=== PATIENT | female | born 1955 | race Two or more races ===

== ENCOUNTER 2022-03-15 12:48 | Emergency (ER) | payer OTHER ==
[~2022-03-15] VITALS: Ht 165.1 cm; Wt 70.3 kg
[2022-03-15 13:02] VITALS: BP 107/47
[2022-03-15] MEDS ORDERED: SODIUM CHLORIDE 0.9% 1,000 ML IV ONE (13:15)
[2022-03-15] MEDS ORDERED: MECLIZINE HCL 25 MG TAB PO ONE (13:15)
[2022-03-15 14:52] LABS: Basophils # (auto) 0.1 10 ^3/uL (0-0.2); Basophils % (auto) 1.4 % (0.0-2.0); Eosinophils # (auto) 0.2 10 ^3/uL (0-0.8); Eosinophils % (auto) 2.5 % (0.0-7.0); Hematocrit 33.6 % (36.0-46.0); Hemoglobin 11.4 g/dL (12.2-16.2); Lymphocytes # (auto) 2.8 10 ^3/uL (0.4-5.4); Lymphocytes % (auto) 34.1 % (10.0-50.0); Mean Corpuscular Hemoglobin 28.5 pg (28.0-32.0); Mean Corpuscular Hgb Conc. 33.9 g/dL (32.0-36.0); Mean Corpuscular Volume 84.1 fL (80.0-100.0); Monocytes # (auto) 0.4 10 ^3/uL (0-1.3); Monocytes % (auto) 4.4 % (0.0-12.0); Neutrophils # (auto) 4.7 10 ^3/uL (1.6-8.6); Neutrophils % (auto) 57.6 % (37.0-80.0); Nucleated Red Blood Cells % 0.1 %; Red Blood Cells 3.99 10^6/uL (4.0-5.20); White Blood Cell 8.2 10^3/uL (4.4-10.8)
[2022-03-15 15:00] LABS: Urine Bacteria NONE SEEN /hpf (None Seen); Urine Blood Negative /uL (Negative); Urine Hyaline Cast FEW /lpf (0 - 2); Urine Specific Gravity 1.018 (1.001-1.035); Urine WBC 5 /hpf (0 - 5)
[2022-03-15 15:08] LABS: Albumin 3.6 g/dL (3.4-5.0); Potassium 3.3 mmol/L (3.5-5.1)
[2022-03-15 15:11] LABS: BUN/Creatinine Ratio 22.2; Bilirubin, Total 0.5 mg/dL (0.2-1.0); Total Protein 6.7 g/dL (6.4-8.2)
[2022-03-15] MEDS ORDERED: MECL25CH38 PO (17:07)
[2022-03-15] MEDS ORDERED: NITR-87 PO (17:08)
[2022-03-15] MEDS ORDERED: POTASSIUM EFFERVESENT TAB 25 MEQ PO ONE (17:15)
== END 2022-03-15 19:47 | disposition home or self-care (01) ==
LOC: ER 12:48
DX: R42 Dizziness and giddiness (principal); E11.649 Type 2 diabetes mellitus with hypoglycemia without coma; I10 Essential (primary) hypertension
CPT/HCPCS: 36415; 70450; 80053; 81001; 82962; 84484; 85025; 93005; 99285; J8597

== ENCOUNTER 2024-02-27 19:20 | Inpatient (IN) | payer OTHER ==
[~2024-02-27] VITALS: Ht 165.1 cm; Wt 67.7 kg
[~2024-02-27 19:20] MED LIST: MECL25CH38 PO; NITR-87 PO
[2024-02-27] MEDS: SODIUM CHLORIDE 0.9% 1,000 ML IV ONE (20:03)
[2024-02-27 20:47] LABS: Basophils # (auto) 0 10 ^3/uL (0-0.2); Eosinophils # (auto) 0 10 ^3/uL (0-0.8); Hematocrit 44.3 % (36.0-46.0); Hemoglobin 14.5 g/dL (12.2-16.2); Lymphocytes # (auto) 1.2 10 ^3/uL (0.4-5.4); Lymphocytes % (auto) 5.5 % (10.0-50.0); Mean Corpuscular Hemoglobin 28.8 pg (28.0-32.0); Mean Corpuscular Hgb Conc. 32.7 g/dL (32.0-36.0); Mean Corpuscular Volume 87.8 fL (80.0-100.0); Monocytes # (auto) 1.5 10 ^3/uL (0-1.3); Neutrophils % (auto) 87.5 % (37.0-80.0); Red Blood Cells 5.04 10^6/uL (4.0-5.20); Red Cell Distribution Width 13.9 % (11.8-14.3); White Blood Cell 21.8 10^3/uL (4.4-10.8)
[2024-02-27 20:50] VITALS: PULSE 93; RESP 15; O2SAT 90
[2024-02-27 20:56] LABS: INR 1.31 (0.9-1.15); Partial Thromboplastin Time 25.4 SEC (24.5-34.5); Prothrombin Time 13.6 sec (9.3-11.8)
[2024-02-27 21:00] LABS: Alanine Aminotransferase 14 U/L (7-40); Albumin 4.4 g/dL (3.2-4.8); Alkaline Phosphatase 174 U/L (46-116); Anion Gap 11 (5-15); Aspartate Aminotransferase 38 U/L (13-40); Blood Urea Nitrogen 27 mg/dL (9-23); Calcium 10.9 mg/dL (8.7-10.4); Carbon Dioxide 24 mmol/L (20-30); Chloride 100 mmol/L (98-107); Glucose 196 mg/dL (74-106); Potassium 4.4 mmol/L (3.5-5.1); Sodium 135 mmol/L (136-145)
[2024-02-27 21:01] LABS: Bilirubin, Total 0.9 mg/dL (0.2-1.0); Total Protein 7.2 g/dL (5.7-8.2)
[2024-02-27 21:53] LABS: Salicylate < 3.0 mg/dL (2.8-20.0)
[2024-02-27 22:02] LABS: Lactic Acid w/Reflex 2.7 mmol/L (0.4-2.0)
[2024-02-27 22:46] LABS: Urine Bacteria FEW /hpf (None Seen); Urine Blood Negative /uL (Negative); Urine Clarity Turbid (Clear); Urine Color Dark-Orange (Yellow); Urine Hyaline Cast FEW /lpf (0 - 2); Urine Mucus FEW (None Seen); Urine Protein, UAD TRACE (Negative); Urine Specific Gravity 1.026 (1.001-1.035); Urine Urobilinogen 8 mg/dL (Negative); Urine WBC 2 /hpf (0 - 5); Urine pH 5.5 (5.0-9.0)
[2024-02-27] MEDS: NALOXONE HCL 1MG/ML 2ML SYRINGE IV ONE (22:46)
[2024-02-27] MEDS: PIPERACILLIN-TAZOB 3.375GM 100 ML IV ONE (22:47)
[2024-02-27] MEDS: SODIUM CHLORIDE 0.9% 1,700 ML IV ONE (22:47)
[2024-02-27 22:55] LABS: Amphetamine Screen, Urine Neg (NEGATIVE); Barbiturate Scree,Urine Neg (NEGATIVE); Benzodiazephine Screen, Urine Neg (NEGATIVE); Cocaine Screen, Urine Neg (NEGATIVE); Opiate Scree,Urine Pos (NEGATIVE)
[2024-02-27 23:23] LABS: Cannabinoid Screen, Urine Neg (NEGATIVE); Phencyclidine Screen, Urine Neg (NEGATIVE)
[2024-02-27] MEDS ORDERED: VANCOMYCIN PER PHARMACY 0 MG IV SCH (23:30)
[2024-02-27] MEDS: VANCOMYCIN 1GM/200ML 200 ML IV ONE (23:52)
[2024-02-28] VITALS (7 sets, daily range): BP systolic 155–167; BP diastolic 87–102; PULSE 104–119; RESP 17–20; TEMP 97.8–98.6; O2SAT 92–96
[2024-02-28 01:15] LABS: Lactic Acid w/Reflex 2.8 mmol/L (0.4-2.0)
[2024-02-28] MEDS: SODIUM CHLORIDE 0.9% 1,000 ML IV SCH (01:29)
[2024-02-28] MEDS ORDERED: MORPHINE SULFATE INJ 2 MG/ml SYRG IV PRN (01:45)
[2024-02-28] MEDS ORDERED: NITROGLYCERIN 0.4 MG SL TAB SL PRN (01:45)
[2024-02-28 01:54] LABS: Basophils # (auto) 0 10 ^3/uL (0-0.2); Basophils % (auto) 0.2 % (0.0-2.0); Eosinophils # (auto) 0 10 ^3/uL (0-0.8); Hematocrit 40.9 % (36.0-46.0); Lymphocytes # (auto) 1.2 10 ^3/uL (0.4-5.4); Lymphocytes % (auto) 6.7 % (10.0-50.0); Mean Corpuscular Hemoglobin 28.4 pg (28.0-32.0); Mean Corpuscular Hgb Conc. 31.8 g/dL (32.0-36.0); Mean Corpuscular Volume 89.3 fL (80.0-100.0); Monocytes # (auto) 1.3 10 ^3/uL (0-1.3); Monocytes % (auto) 6.8 % (0.0-12.0); Neutrophils % (auto) 86.3 % (37.0-80.0); Red Blood Cells 4.58 10^6/uL (4.0-5.20); Red Cell Distribution Width 13.9 % (11.8-14.3); White Blood Cell 18.5 10^3/uL (4.4-10.8)
[2024-02-28] MEDS ORDERED: VANCOMYCIN PER PHARMACY 0 MG IV SCH (02:00)
[2024-02-28 06:04] LABS: Basophils # (auto) 0 10 ^3/uL (0-0.2); Basophils % (auto) 0.1 % (0.0-2.0); Eosinophils # (auto) 0 10 ^3/uL (0-0.8); Hematocrit 43.1 % (36.0-46.0); Hemoglobin 13.9 g/dL (12.2-16.2); Lymphocytes # (auto) 1.1 10 ^3/uL (0.4-5.4); Lymphocytes % (auto) 5.9 % (10.0-50.0); Mean Corpuscular Hemoglobin 28.5 pg (28.0-32.0); Mean Corpuscular Hgb Conc. 32.2 g/dL (32.0-36.0); Mean Corpuscular Volume 88.4 fL (80.0-100.0); Monocytes # (auto) 1.4 10 ^3/uL (0-1.3); Neutrophils # (auto) 16.9 10 ^3/uL (1.6-8.6); Red Blood Cells 4.88 10^6/uL (4.0-5.20); Red Cell Distribution Width 14.1 % (11.8-14.3); White Blood Cell 19.4 10^3/uL (4.4-10.8)
[2024-02-28 06:12] LABS: Chloride 109 mmol/L (98-107); Potassium 3.5 mmol/L (3.5-5.1); Sodium 140 mmol/L (136-145)
[2024-02-28 06:13] LABS: Anion Gap 8 (5-15); Calcium 8.8 mg/dL (8.5-10.1); Carbon Dioxide 23 mmol/L (20-30)
[2024-02-28 06:18] LABS: BUN/Creatinine Ratio 23.5 (10.0-20.0); Blood Urea Nitrogen 31 mg/dL (9-23); Glucose 171 mg/dL (74-106)
[2024-02-28] MEDS: PIPERACILLIN-TAZOB 3.375GM 100 ML IV SCH (06:19)
[2024-02-28] MEDS ORDERED: LORazepam 2MG/ML-1ML VIAL IV PRN (10:30)
[2024-02-28 11:09] LABS: Folate (Folic Acid) 10.02 ng/mL (>5.38)
[2024-02-28] MEDS: HEPARIN SODIUM (PORCINE) 5000 UNITS/ML 1ML VIAL SC SCH (13:51)
[2024-02-28] MEDS: CARBIDOPA W LEVODOPA 25/100mg TABLET PO SCH (15:34)
[2024-02-28] MEDS ORDERED: FENO145T27 OR (16:07)
[2024-02-28] MEDS ORDERED: CLON0.1T PO (16:07)
[2024-02-28] MEDS ORDERED: MULT1TAB57 PO (16:07)
[2024-02-28] MEDS ORDERED: ASCO500C46 PO (16:07)
[2024-02-28] MEDS ORDERED: AMLO1TAB22 PO (16:07)
[2024-02-28] MEDS ORDERED: GABA-1250 PO (16:07)
[2024-02-28] MEDS ORDERED: HYDR50TA47 PO (16:07)
[2024-02-28] MEDS ORDERED: BACL10TA PO (16:07)
[2024-02-28] MEDS ORDERED: LINA145C OR (16:07)
[2024-02-28] MEDS ORDERED: CHOL100055 PO (16:07)
[2024-02-28] MEDS ORDERED: CARB25TA79 PO (16:07)
[2024-02-28] MEDS ORDERED: SEMA7TAB2 PO (16:07)
[2024-02-28] MEDS ORDERED: ALLO100T PO (16:07)
[2024-02-28] MEDS ORDERED: FURO1TAB33 GT (16:07)
[2024-02-28] MEDS ORDERED: LISI40TA16 PO (16:07)
[2024-02-28] MEDS ORDERED: METO200T42 PO (16:07)
[2024-02-28] MEDS ORDERED: HYDR-4491 OR (16:07)
[2024-02-28] MEDS ORDERED: MYCO500T PO (16:07)
[2024-02-28] MEDS ORDERED: BUPR-346 PO (16:07)
[2024-02-28] MEDS ORDERED: TRAZ1TAB12 PO (16:07)
[2024-02-28] MEDS ORDERED: ARIP2TAB PO (16:07)
[2024-02-28] MEDS ORDERED: ATOR20TA50 PO (16:07)
[2024-02-28] MEDS: VANCOMYCIN 1GM/200ML 200 ML IV SCH (22:33)
[2024-02-28] MEDS: MELATONIN 5 MG TAB PO ONE (23:02)
[2024-02-28] MEDS: cloNIDine HCL 0.1 MG TAB PO ONE (23:03)
[2024-02-29 05:00] VITALS: BP 157/91; PULSE 104; RESP 19; TEMP 98.7; O2SAT 93
[2024-02-29 06:08] LABS: Basophils # (auto) 0 10 ^3/uL (0-0.2); Basophils % (auto) 0.2 % (0.0-2.0); Eosinophils # (auto) 0 10 ^3/uL (0-0.8); Hematocrit 36.1 % (36.0-46.0); Hemoglobin 11.9 g/dL (12.2-16.2); Lymphocytes # (auto) 1.8 10 ^3/uL (0.4-5.4); Lymphocytes % (auto) 10.7 % (10.0-50.0); Mean Corpuscular Hemoglobin 29.1 pg (28.0-32.0); Mean Corpuscular Volume 88.1 fL (80.0-100.0); Monocytes # (auto) 0.8 10 ^3/uL (0-1.3); Monocytes % (auto) 5.1 % (0.0-12.0); Neutrophils # (auto) 13.8 10 ^3/uL (1.6-8.6); Red Cell Distribution Width 13.8 % (11.8-14.3); White Blood Cell 16.5 10^3/uL (4.4-10.8)
[2024-02-29 06:28] LABS: Albumin 3.3 g/dL (3.2-4.8); Alkaline Phosphatase 94 U/L (46-116); Anion Gap 7 (5-15); Aspartate Aminotransferase 18 U/L (13-40); BUN/Creatinine Ratio 29.5 (10.0-20.0); Bilirubin, Total 0.8 mg/dL (0.2-1.0); Blood Urea Nitrogen 28 mg/dL (9-23); Calcium 8.5 mg/dL (8.5-10.1); Carbon Dioxide 25 mmol/L (20-30); Chloride 106 mmol/L (98-107); Glucose 145 mg/dL (74-106); Potassium 3.4 mmol/L (3.5-5.1); Sodium 138 mmol/L (136-145); Total Protein 5.1 g/dL (5.7-8.2)
[2024-02-29 06:32] LABS: Alanine Aminotransferase < 9 U/L (7-40)
[2024-02-29] MEDS: hydrALAZINE HCL 20 MG/ML VL IV PRN (07:02)
[2024-02-29] MEDS: POTASSIUM CHL 20MEQ/100ML 100 ML IV ONE (07:02)
[2024-02-29 08:00] VITALS: BP 140/83; PULSE 106; PULSE 98; RESP 16; RESP 20; TEMP 98.3; O2SAT 92; O2SAT 96
[2024-02-29] MEDS: ONDANSETRON HCL 4 MG/2 ML VIAL IV PRN (09:33)
[2024-02-29 12:00] VITALS: BP 163/78; PULSE 103; RESP 16; TEMP 98.6; O2SAT 91
[2024-02-29 16:00] VITALS: BP 159/99; PULSE 117; RESP 18; TEMP 97.8; O2SAT 97
[2024-02-29] MEDS ORDERED: metroNIDAZOLE 500MG/100ML 100 ML IV SCH (16:30)
[2024-02-29] MEDS ORDERED: LATA0.008 EACHEYE (19:42)
[2024-02-29] MEDS ORDERED: TIMO0.5S32 EACHEYE (19:42)
[2024-02-29 20:00] VITALS: PULSE 116
[2024-02-29 21:00] VITALS: BP 160/88; PULSE 106; RESP 20; TEMP 98.2; O2SAT 94
[2024-02-29] MEDS: metroNIDAZOLE 500MG/100ML 100 ML IV SCH (21:13)
[2024-02-29] MEDS: MELATONIN 5 MG TAB PO ONE (23:20)
[2024-03-01] VITALS (8 sets, daily range): BP systolic 126–167; BP diastolic 69–104; PULSE 92–105; RESP 18–21; TEMP 97.8–98.3; O2SAT 92–98
[2024-03-01] MEDS: HYDROcodone-ACET 5/325MG TAB PO PRN (00:47)
[2024-03-01 07:51] LABS: Alanine Aminotransferase < 9 U/L (7-40); Albumin 3.1 g/dL (3.2-4.8); Alkaline Phosphatase 80 U/L (46-116); Anion Gap 6 (5-15); Aspartate Aminotransferase 19 U/L (13-40); Bilirubin, Total 0.9 mg/dL (0.2-1.0); Blood Urea Nitrogen 14 mg/dL (9-23); Calcium 8.2 mg/dL (8.7-10.4); Carbon Dioxide 26 mmol/L (20-30); Chloride 104 mmol/L (98-107); Glucose 130 mg/dL (74-106); Potassium 2.8 mmol/L (3.5-5.1); Sodium 136 mmol/L (136-145); Total Protein 4.8 g/dL (5.7-8.2)
[2024-03-01 07:52] LABS: Basophils # (auto) 0 10 ^3/uL (0-0.2); Basophils % (auto) 0.3 % (0.0-2.0); Eosinophils # (auto) 0 10 ^3/uL (0-0.8); Eosinophils % (auto) 0.2 % (0.0-7.0); Hematocrit 33.5 % (36.0-46.0); Hemoglobin 10.9 g/dL (12.2-16.2); Lymphocytes # (auto) 1.6 10 ^3/uL (0.4-5.4); Lymphocytes % (auto) 12.1 % (10.0-50.0); Mean Corpuscular Hemoglobin 28.5 pg (28.0-32.0); Mean Corpuscular Hgb Conc. 32.4 g/dL (32.0-36.0); Mean Corpuscular Volume 88.1 fL (80.0-100.0); Monocytes # (auto) 0.5 10 ^3/uL (0-1.3); Monocytes % (auto) 3.7 % (0.0-12.0); Neutrophils # (auto) 10.8 10 ^3/uL (1.6-8.6); Neutrophils % (auto) 83.7 % (37.0-80.0); Nucleated Red Blood Cells % 0.1 %; Red Blood Cells 3.81 10^6/uL (4.0-5.20); Red Cell Distribution Width 13.8 % (11.8-14.3); White Blood Cell 12.9 10^3/uL (4.4-10.8)
[2024-03-01] MEDS: TIMOLOL MAL 0.5% OPTH(EYE) SOL 5ML EACHEYE SCH (10:48)
[2024-03-01] MEDS: POTASSIUM CHL 20 Meq TABLET PO ONE (10:49)
[2024-03-01] MEDS ORDERED: VANCOMYCIN 1GM/200ML 200 ML IV SCH (17:00)
[2024-03-01] MEDS ORDERED: LATANOPROST 0.005 % OPTH(EYE) SOL 2.5ML EACHEYE SCH (22:00)
== END 2024-03-01 17:45 | DRG 871 ==
LOC: ER 19:20 → TELE 02-28 01:41 → OBSVTOIN 02-28 10:13 → TELE-CENTR 02-28 14:29
PROVIDERS: ADMIT Hospitalist; ATTEND Student in an Organized Health Care Education/Training Program
DX: A41.9 Sepsis, unspecified organism (principal); G93.41 Metabolic encephalopathy; N17.0 Acute kidney failure with tubular necrosis; A04.72 Enterocolitis due to Clostridium difficile, not specified as recurrent; E87.20 Acidosis, unspecified; N39.0 Urinary tract infection, site not specified; E11.22 Type 2 diabetes mellitus with diabetic chronic kidney disease; I12.9 Hypertensive chronic kidney disease with stage 1 through stage 4 chronic kidney disease, or unspecified chronic kidney disease; N18.30 Chronic kidney disease, stage 3 unspecified; E86.0 Dehydration; G20.A1 Parkinson's disease without dyskinesia, without mention of fluctuations; G25.3 Myoclonus; F17.200 Nicotine dependence, unspecified, uncomplicated; D64.9 Anemia, unspecified; Z82.0 Family history of epilepsy and other diseases of the nervous system
CPT/HCPCS: 36415; 70450; 70551; 71045; 71250; 72125; 73562; 74176; 80048; 80053; 80202; 80307; 80320; 80329; 81001; 82565; 82607; 82746; 83605; 83735; 83880; 84443; 84484; 85025; 85610; 85730; 87040; 87045; 87081; 87086; 87427; 87493; 93005; 93306; 95819; 97163; G0378; J2405; J2543; J3480; J3490

== ENCOUNTER 2024-12-11 13:01 | Emergency (ER) | payer OTHER ==
[~2024-12-11] VITALS: Ht 165.1 cm; Wt 66.0 kg
[~2024-12-11 13:01] MED LIST changes: +ALLO100T PO; +AMLO1TAB22 PO; +ARIP2TAB PO; +ASCO500C46 PO; +ATOR20TA50 PO; +BACL10TA PO; +BUPR-346 PO; +CARB25TA79 PO; +CHOL100055 PO; +CLON0.1T PO; +FENO145T27 OR; +FURO1TAB33 GT; +GABA-1250 PO; +HYDR-4491 OR; +HYDR50TA47 PO; +LATA0.008 EACHEYE; +LINA145C OR; +LISI40TA16 PO; +METO200T42 PO; +MULT1TAB57 PO; +MYCO500T PO; -NITR-87 PO; +SEMA7TAB2 PO; +TIMO0.5S32 EACHEYE; +TRAZ1TAB12 PO
--- NOTE | 2024-12-11 13:31 | ED.PDOC ---
History of Present Illness HPI Comments 69-year-old female presents with a chief complaint of constipation x onset Monday with associated abdominal pain. Patient states that she took lactulose orally and via an enema by her hospice nurse. Patient denies having a bowel movement since taking the lactulose. Patient reports taking Tylenol #3 and knows that it causes constipation. Time Seen by MD: 13:21 Primary Care Provider: MINA Suarez Notes: Nurses Notes, Medications, Allergies Allergies: Coded Allergies: NO KNOWN ALLERGIES (Unverified , 03/15/22) Home Meds Active Scripts Meclizine HCl (Meclizine) 25 Mg Chw, 25 MG PO BIDWM for 10 Days, #10 CHW Prov:KASHIF CABALLERO MD 03/15/22 Reported Medications Latanoprost (LATANOPROST) 0.005 % Sammie, 1 DROP EACHEYE 02/29/24 Timolol Maleate (Ophth) (Timolol Maleate) 0.5 % Sammie, 1 DROP EACHEYE BID 02/29/24 Atorvastatin Calcium (ATORVASTATIN CALCIUM) 20 Mg Tab, 20 MG PO DAILY, TAB 02/28/24 Gabapentin (Gabapentin) 300 Mg Cap, 300 MG PO for 30 Days, MG 02/28/24 Furosemide (Lasix) 20 Mg Tb, 20 MG GT, TAB 02/28/24 Semaglutide (Rybelsus) 7 Mg Tab, 7 MG PO, TAB 02/28/24 Allopurinol (Allopurinol) 100 Mg Tab, 100 MG PO DAILY for 30 Days, MG 02/28/24 Bupropion Hcl (Bupropion Hcl) 100 Mg Tab, 100 MG PO Q8HR for 30 Days, MG 02/28/24 Trazodone Hcl (Trazodone Hcl) 150 Mg Tab, 150 MG PO, MG 02/28/24 Aripiprazole (Abilify) 2 Mg Tab, 2 MG PO, TAB 02/28/24 Fenofibrate (FENOFIBRATE) 145 Mg Tab, 145 MG OR, TAB 02/28/24 Amlodipine Besylate (Amlodipine Besylate) 5 Mg Tab, 5 MG PO DAILY for 30 Days, MG 02/28/24 Lisinopril (Lisinopril) 40 Mg Tab, 40 MG PO DAILY for 30 Days, MG 02/28/24 Hydralazine Hcl (Hydralazine Hcl) 50 Mg Tab, 50 MG PO for 30 Days, MG 02/28/24 Metoprolol Succinate (Metoprolol Succinate Er) 200 Mg Tab, 200 MG PO, TAB 02/28/24 Clonidine Hydrochloride (Clonidine Hcl) 0.1 Mg Tab, 0.1 MG PO BIDBL for 30 Days, MG 02/28/24 Hydroxychloroquine Sulfate (PLAQUENIL) 200 Mg Tab, 200 MG OR, TAB 02/28/24 Carbidopa-Levodopa (Carbidopa/Levodopa Odt 25-100 mg) 1 Tab Tab, 1 TAB PO, TAB 02/28/24 Mycophenolate Mofetil (Cellcept) 500 Mg Tab, 2 TAB PO BID, #360 TAB 3 Refills 02/28/24 Linaclotide Base (LINZESS) 145 Mcg Cap, 145 MCG OR, CAP 02/28/24 Baclofen (Baclofen) 10 Mg Tab, 10 MG PO Q8HP PRN for BREAKTHROUGH PAIN for 30 Days, MG 02/28/24 Cholecalciferol (D3) 1,000 Unit Tab, 1000 UNIT PO, TAB 02/28/24 Ascorbic Acid (C 500) 500 Mg Chw, 500 MG PO, TAB.CHEW 02/28/24 Multiple Vitamins W/ Minerals (One Daily Multivitamin Wo) 1 Tab Tab, 1 TAB PO, TAB 02/28/24 Information Source: Patient Mode of Arrival: Ambulatory Severity: Moderate Timing: Days Duration: Since onset Prehospital treatment: None Past Medical History PAST MEDICAL HISTORY: DM, ESRD (STAGE 3), HTN Surgical History: Denies all surgeries CAMERA OPERATOR History: No Pertinent CAMERA OPERATOR History Social History Smoker: Non-Smoker Alcohol: Denies ETOH Use Drugs: Denies Drug Use Lives In: Home Constitutional: denies: chills, diaphoresis, fatigue, fever, malaise, sweats, weakness, others EENTM: denies: blurred vision, double vision, ear bleeding, ear discharge, ear drainage, ear pain, ear ringing, eye pain, eye redness, hearing loss, mouth pain, mouth swelling, nasal discharge, nose bleeding, nose congestion, nose pain, photophobia, tearing, throat pain, throat swelling, voice changes, others Respiratory: denies: cough, hemoptysis, orthopnea, SOB at rest, shortness of breath, SOB with excertion, stridor, wheezing, others Cardiovascular: denies: chest pain, dizzy spells, diaphoresis, Dyspnea on exertion, edema, irregular heart beat, left arm pain, lightheadedness, palpitations, PND, syncope, others Gastrointestinal: reports: abdominal pain, constipated; denies: abdomen distended, blood streaked bowels, diarrhea, dysphagia, difficulty swallowing, hematemesis, melena, nausea, poor appetite, poor fluid intake, rectal bleeding, rectal pain, vomiting, others Genitourinary: denies: abnormal vagina bleeding, burning, dyspareunia, dysuria, flank pain, frequency, hematuria, incontinence, pain, , vagina discharge, urgency, others Neurological: denies: dizziness, fainting, headache, left sided numbness, left sided weakness, numbness, paresthesia, pre-existing deficit, right sided numbness, right sided weakness, seizure, speech problems, tingling, tremors, weakness, others Musculoskeletal: denies: back pain, gout, joint pain, joint swelling, muscle pain, muscle stiffness, neck pain, others Integumetry: denies: bruises, change in color, change in hair/nails, dryness, laceration, lesions, lumps, rash, wounds, others Allergic/Immunocompromised: denies: Difficulty Healing, Frequent Infections, Hives, Itching, others Hematologic/Lymphatic: denies: anemia, blood clots, easy bleeding, easy bruising, swollen glands, others Endocrine: denies: excessive hunger, excessive sweating, excessive thirst, excessive urination, flushing, intolerance to cold, intolerance to heat, unexplained weight gain, unexplained weight loss, others Psychiatric: denies: anxiety, bipolar disorder, depression, hopeless, panic disorder, schizophrenia, sleepless, suicidal, others All Other Systems: Reviewed and Negative Physical Exam General Appearance: No Apparent Distress HEENT: Normal ENT Inspection, Pharynx Normal, TMs Normal Neck: Full Range of Motion, Non-Tender, Normal, Normal Inspection Respiratory: Chest Non-Tender, Lungs Clear, No Accessory Muscle Use, No R espiratory Distress, Normal Breath Sounds Cardiovascular: No Edema, No JVD, No Murmur, No Gallop, Normal Peripheral Pulses, Regular Rate/Rhythm Breast Exam: Deferred Gastrointestinal: No Organomegaly, Non Tender, No Pulsatile Mass, Normal Bowel Sounds, Soft Genitalia: Deferred Pelvic: Deferred Rectal: Deferred Extremities: No calf tenderness, Normal capillary refill, Normal inspection, Normal range of motion, Non-tender, No pedal edema Musculoskeletal : Apperance: Normal Neurologic: Alert, wool tamper II-XII nml as Tested, No Motor Deficits, Normal Affect, Normal Mood, No Sensory Deficits Cerebellar Function: Normal Reflexes: Normal Skin: Dry, Normal Color, Warm Lymphatic: No Adenopathy Was a procedure done? Was a procedure done?: No Differential Dx Considerations may include: Constipation, abdominal pain X-Ray, Labs, Meds, VS Vital Signs Date Time Temp Pulse Resp B/P (MAP) Pulse Ox O2 Delivery O2 Flow Rate FiO2 12/11/24 13:39 98.6 79 18 122/58 (79) 97 KUB Abdomen Impression: Large volume colonic stool The patient was given an enema. The patient will continue the lactulose at home by the home health nurse The patient will follow up with the primary care doctor The patient will return to the emergency department's condition worsens. Images Reviewed?: Images reviewed and evaluated by me Time of 1ST Reevaluation: 13:51 Reevaluation 1ST: Unchanged Patient Education/Counseling: Diagnosis, Treatment, Prognosis, Need For Follow Up Family Education/Counseling: Diagnosis, Treatment, Prognosis, Need For Follow Up Departure 1 Departure Time of Disposition: 15:55 Impression: Primary Impression: Constipation Qualified Codes: K59.00 - Constipation, unspecified Disposition: 01 HOME / SELF CARE / HOMELESS Condition: Fair Discharged With: Self Critical Care Note Critical Care Time?: No Stability Stability form required: No Heart Score Heart Score: Heart Score Response (Comments) Value History N/A 0 EKG N/A 0 Age N/A 0 Risk Factors N/A 0 Troponin N/A 0 Total 0 I personally scribed for RICKIE GAO MD ([email or web address]) on 12/11/24 at 13:31. Electronically submitted by Hilton Wang ([email or web address]). I personally scribed for RICKIE GAO MD ([email or web address]) on 12/11/24 at 14:20. Electronically submitted by Hilton Wang ([email or web address]). RICKIE GAO MD Dec 11, 2024 13:31
--- NOTE | 2024-12-11 13:43 | DVH ---
Exam: XY KUB ABDOMEN SINGLE VIEW Indication: pain Comparison: None Technique: 1 radiographic views of the abdomen. Findings: Large volume colonic stool. Nonobstructive bowel gas pattern noted. There is no definite evidence for pneumoperitoneum. No abnormal calcifications noted. Impression: Large volume colonic stool.
[2024-12-11 17:53] VITALS: BP 128/62; PULSE 81; RESP 20; TEMP 98.9; O2SAT 96
[2024-12-11] MEDS: FLEET ENEMA(ADULT) 135 ML PR ONE (18:07)
== END 2024-12-11 18:10 | disposition home or self-care (01) ==
LOC: ER 13:01
DX: K59.00 Constipation, unspecified (principal); I12.0 Hypertensive chronic kidney disease with stage 5 chronic kidney disease or end stage renal disease; E11.22 Type 2 diabetes mellitus with diabetic chronic kidney disease; N18.6 End stage renal disease; Z79.899 Other long term (current) drug therapy; Z79.624 Long term (current) use of inhibitors of nucleotide synthesis
CPT/HCPCS: 74018

== ENCOUNTER 2024-12-13 16:56 | Inpatient (IN) | payer OTHER ==
[~2024-12-13] VITALS: Ht 165.1 cm; Wt 67.0 kg
[2024-12-13 17:41] LABS: Basophils # (auto) 0 10 ^3/uL (0-0.2); Basophils % (auto) 0.3 % (0.0-2.0); Eosinophils # (auto) 0 10 ^3/uL (0-0.8); Eosinophils % (auto) 0.1 % (0.0-7.0); Hematocrit 37.2 % (36.0-46.0); Hemoglobin 12.2 g/dL (12.2-16.2); Lymphocytes # (auto) 1.5 10 ^3/uL (0.4-5.4); Lymphocytes % (auto) 16.1 % (10.0-50.0); Mean Corpuscular Hemoglobin 28.8 pg (28.0-32.0); Mean Corpuscular Hgb Conc. 32.9 g/dL (32.0-36.0); Mean Corpuscular Volume 87.6 fL (80.0-100.0); Monocytes # (auto) 0.7 10 ^3/uL (0-1.3); Monocytes % (auto) 7.7 % (0.0-12.0); Neutrophils # (auto) 7.2 10 ^3/uL (1.6-8.6); Neutrophils % (auto) 75.8 % (37.0-80.0); Platelet Count (auto) 243 10^3/uL (140-450); Red Blood Cells 4.24 10^6/uL (4.0-5.20); Red Cell Distribution Width 14.1 % (11.8-14.3); White Blood Cell 9.5 10^3/uL (4.4-10.8)
[2024-12-13 17:57] LABS: Alanine Aminotransferase 30 U/L (7-40); Albumin 4.6 g/dL (3.2-4.8); Alkaline Phosphatase 78 U/L (46-116); Anion Gap 9 (5-15); Aspartate Aminotransferase 35 U/L (13-40); BUN/Creatinine Ratio 12.1 (10.0-20.0); Blood Urea Nitrogen 14 mg/dL (9-23); Carbon Dioxide 25 mmol/L (20-31); Chloride 100 mmol/L (98-107); Lipase 28 U/L (12-53); Total Protein 7.1 g/dL (5.7-8.2)
[2024-12-13 17:58] LABS: Bilirubin, Total 0.7 mg/dL (0.2-1.0)
[2024-12-13 17:59] LABS: Glucose 136 mg/dL (74-106); Potassium 3.3 mmol/L (3.5-5.1); Sodium 134 mmol/L (136-145)
--- NOTE | 2024-12-13 18:13 | DVH ---
Procedure: CT CT AB PEL WO CON-NO ORAL OR IV 12/13/2024 05:28 PM Indication: abd pain, nausea constip Comparison Study: CT CHST AB PEL WO CON-NO IV/ORAL on DOS: 02/27/24 Technique: Axial images were obtained and reformatted in coronal and sagittal planes. All CT scans at this medical facility are performed using dose modulation techniques as appropriate to a performed e xam including the following: Automated exposure control was utilized; adjustment of the MA and/or KV according to patient size; and use of iterative reconstruction technique. CT Dose: CTDI volume is 5.9 mGy. Dose-length product is 321.94 mGy*cm FINDINGS: Lower Chest: Unremarkable. Hepatobiliary: Hepatic steatosis. Spleen: Unremarkable. Pancreas: Unremarkable. Adrenal Glands: Unremarkable. tract: The kidneys are normal in size bilaterally without hydronephrosis or nephrolithiasis. The u rinary bladder is unremarkable. GI tract: The stomach is grossly normal in appearance. No evidence of small bowel obstruction . Mode rate fecal retention noted in the ascending and transverse colon. Hard formed stool noted in the dist al descending colon and proximal sigmoid colon. No rectal fecal impaction. Fat stranding noted adjac ent to distal sigmoid colon . Distal sigmoid colon appears collapsed. Descending and sigmoid divertic ulosis noted. The appendix is not visualized. No inflammatory change is noted in the right lower quad rant. Lymphatics: No mesenteric, retroperitoneal or periportal lymphadenopathy. Vasculature: The abdominal aorta is normal in caliber. Diffuse calcified plaque formation is noted. Pelvic Organs: Unremarkable Bones/soft tissues: No acute abnormality. Other: None. IMPRESSION: 1. Moderate fecal retention in the ascending and transverse colon. Hard formed stool in the distal descending colon and proximal sigmoid colon. No rectal fecal impaction. Distal sigmoid colon is regla apsed , thick-walled and with adjacent fat stranding. Findings may reflect an infiltrative mural les ion or developing colitis or diverticulitis. Some of the diverticula are mildly thick-walled. Recomme nd clinical and biochemical correlation follow-up by CT scan with IV contrast or colonoscopy to ensur e regression and benignity. No evidence of perforation at this time.
[2024-12-13] MEDS: SODIUM CHLORIDE 0.9% 1,000 ML IV ONE (18:37)
[2024-12-13] MEDS: ONDANSETRON HCL 4 MG/2 ML VIAL IV ONE (18:51)
[2024-12-13] MEDS: MORPHINE SULFATE INJ 2 MG/ml SYRG IV ONE ×2 (18:56→23:11)
--- NOTE | 2024-12-13 19:04 | ECG ---
[facility], [place] Test Date: 2024-12-13 Test Time: 17:03:47 Pat Name: NABILA RIVERA Department: er Room: 0208 Gender: F Grinder Dresser: vianey : 1955 Requested By: LUANA ELAINE Order Number: [id number] Reading MD: Ramesh Cisneros Measurements Intervals Dickens Rate: 74 P: 35 NH: 143 QRS: -8 QRSD: 89 T: 19 QT: 392 QTc: 435 Interpretive Statements Sinus rhythm Inferior infarct, old Consider anterolateral infarct Electronically Signed On 12-14-2024 18:06:25 PST by Ramesh Cisneros Please click the below link to view image of tracing.
--- NOTE | 2024-12-13 19:19 | ED.PDOC ---
GI ASSESSMENT HPI Comments 69-year-old female brought in by EMS complaining of severe diffuse abdominal pain and cramping. Patient states she was seen here yesterday for constipation and was discharged with a prescription for enemas. Patient states she has had 3 enemas, including 1 administered by a home health nurse today. She still has not had a bowel movement for the past 7 days. Now she reports nausea but no vomiting. She denies any urinary symptoms or fever. Chief Complaint: Abdominal Pain Time Seen by MD: 18:20 Primary Care Provider: KASI Reviewed Notes: Nurses Notes, Medications, Allergies Allergies: Coded Allergies: NO KNOWN ALLERGIES (Unverified , 03/15/22) Home Meds Active Scripts Meclizine HCl (Meclizine) 25 Mg Chw, 25 MG PO BIDWM for 10 Days, #10 CHW Prov:KASHIF CABALLERO MD 03/15/22 Reported Medications Latanoprost (LATANOPROST) 0.005 % Sammie, 1 DROP EACHEYE 02/29/24 Timolol Maleate (Ophth) (Timolol Maleate) 0.5 % Sammie, 1 DROP EACHEYE BID 02/29/24 Atorvastatin Calcium (ATORVASTATIN CALCIUM) 20 Mg Tab, 20 MG PO DAILY, TAB 02/28/24 Gabapentin (Gabapentin) 300 Mg Cap, 300 MG PO for 30 Days, MG 02/28/24 Furosemide (Lasix) 20 Mg Tb, 20 MG GT, TAB 02/28/24 Semaglutide (Rybelsus) 7 Mg Tab, 7 MG PO, TAB 02/28/24 Allopurinol (Allopurinol) 100 Mg Tab, 100 MG PO DAILY for 30 Days, MG 02/28/24 Bupropion Hcl (Bupropion Hcl) 100 Mg Tab, 100 MG PO Q8HR for 30 Days, MG 02/28/24 Trazodone Hcl (Trazodone Hcl) 150 Mg Tab, 150 MG PO, MG 02/28/24 Aripiprazole (Abilify) 2 Mg Tab, 2 MG PO, TAB 02/28/24 Fenofibrate (FENOFIBRATE) 145 Mg Tab, 145 MG OR, TAB 02/28/24 Amlodipine Besylate (Amlodipine Besylate) 5 Mg Tab, 5 MG PO DAILY for 30 Days, MG 02/28/24 Lisinopril (Lisinopril) 40 Mg Tab, 40 MG PO DAILY for 30 Days, MG 02/28/24 Hydralazine Hcl (Hydralazine Hcl) 50 Mg Tab, 50 MG PO for 30 Days, MG 02/28/24 Metoprolol Succinate (Metoprolol Succinate Er) 200 Mg Tab, 200 MG PO, TAB 02/28/24 Clonidine Hydrochloride (Clonidine Hcl) 0.1 Mg Tab, 0.1 MG PO BIDBL for 30 Days, MG 02/28/24 Hydroxychloroquine Sulfate (PLAQUENIL) 200 Mg Tab, 200 MG OR, TAB 02/28/24 Carbidopa-Levodopa (Carbidopa/Levodopa Odt 25-100 mg) 1 Tab Tab, 1 TAB PO, TAB 02/28/24 Mycophenolate Mofetil (Cellcept) 500 Mg Tab, 2 TAB PO BID, #360 TAB 3 Refills 02/28/24 Linaclotide Base (LINZESS) 145 Mcg Cap, 145 MCG OR, CAP 02/28/24 Baclofen (Baclofen) 10 Mg Tab, 10 MG PO Q8HP PRN for BREAKTHROUGH PAIN for 30 Days, MG 02/28/24 Cholecalciferol (D3) 1,000 Unit Tab, 1000 UNIT PO, TAB 02/28/24 Ascorbic Acid (C 500) 500 Mg Chw, 500 MG PO, TAB.CHEW 02/28/24 Multiple Vitamins W/ Minerals (One Daily Multivitamin Wo) 1 Tab Tab, 1 TAB PO, TAB 02/28/24 Information Source: Patient Mode of Arrival: EMS Timing: Hours Duration: Since onset, Hours Prehospital treatment: None Quality: Aching Vomitus: None Stool: Minimal Severity: Moderate Recent: None Recent Hx of: None Pain Location: RLQ, LLQ, Suprapubic Associated sign and symptoms: Constipation Past Medical History PAST MEDICAL HISTORY: DM, ESRD, HTN Past Medical History (Other): Fibromyalgia Surgical History: Appendectomy, Cholecystectomy, Hysterectomy PIPELINER History: No Pertinent PIPELINER History Family History Family History: Reviewed,noncontributory to illness, Unknown Social History Smoker: Non-Smoker Alcohol: Denies ETOH Use Drugs: Denies Drug Use Lives In: Home All Other Systems: Reviewed and Negative (Comprehensive systems review obtained and negative except for what is stated in the HPI.) Physical Exam General Appearance: Moderate Distress, Obese HEENT: PERRL/EOMI, Other (Moist mucous membranes) Neck: Full Range of Motion, Normal Inspection Respiratory: Lungs Clear, No Accessory Muscle Use, No Respiratory Distress, Normal Breath Sounds Cardiovascular: No Edema, No JVD, Regular Rate/Rhythm Breast Exam: Deferred Gastrointestinal: Diffuse, Distended, Soft, Tenderness Genitalia: Deferred Pelvic: Deferred Rectal: Deferred Extremities: Normal inspection, Normal range of motion, No pedal edema Musculoskeletal : Apperance: Normal Neurologic: Alert (Oriented x4), Normal Affect, Normal Mood, Other (Ambulatory. No gross focal deficit.) Cerebellar Function: NOT DONE Reflexes: NOT DONE Skin: Dry, Normal Color, Warm Lymphatic: NOT DONE Was a procedure done? Was a procedure done?: No GI differential Dx Differential Diagnosis: Bowel Obstruction, Constipation, Diverticular disease, Gastritis/PUD, Gastroenteritis, Inflammatory BD, Ischemic Bowel, Pancreatitis, UTI, Dehydration, Diabetes/ DKA, Electrolyte Imbalance, Food Poisoning, Bacterial, Viral, Hypovolemia, Impaction, Renal Failure X-Ray, Labs, Meds, VS Vital Signs Date Time Temp Pulse Resp B/P (MAP) Pulse Ox O2 Delivery O2 Flow Rate FiO2 12/13/24 19:26 89 17 100/63 12/13/24 18:56 74 18 144/82 12/13/24 18:41 98.7 72 20 100/63 (75) 97 98.7 12/13/24 18:41 72 18 97 Room Air 12/13/24 17:04 98.3 64 18 114/78 (90) 98 12/13/24 17:03 74 Lab Test 12/13/24 19:18 12/13/24 17:30 Range/Units Troponin I High Sensitivity 3 L 3 L </=34 ng/L White Blood Count 9.5 4.4-10.8 10^3/uL Red Blood Count 4.24 4.0-5.20 10^6/uL Hemoglobin 12.2 12.2-16.2 g/dL Hematocrit 37.2 36.0-46.0 % Mean Corpuscular Volume 87.6 80.0-100.0 fL Mean Corpuscular Hemoglobin 28.8 28.0-32.0 pg Mean Corpuscular Hemoglobin Concent 32.9 32.0-36.0 g/dL Red Cell Distribution Width 14.1 11.8-14.3 % Platelet Count 243 140-450 10^3/uL Mean Platelet Volume 9.9 6.9-10.8 fL Neutrophils (%) (Auto) 75.8 37.0-80.0 % Lymphocytes (%) (Auto) 16.1 10.0-50.0 % Monocytes (%) (Auto) 7.7 0.0-12.0 % Eosinophils (%) (Auto) 0.1 0.0-7.0 % Basophils (%) (Auto) 0.3 0.0-2.0 % Neutrophils # (Auto) 7.2 1.6-8.6 10 ^3/uL Lymphocytes # (Auto) 1.5 0.4-5.4 10 ^3/uL Monocytes # (Auto) 0.7 0-1.3 10 ^3/uL Eosinophils # (Auto) 0 0-0.8 10 ^3/uL Basophils # (Auto) 0 0-0.2 10 ^3/uL Nucleated Red Blood Cells 0.0 % Sodium Level 134 L 136-145 mmol/L Potassium Level 3.3 L 3.5-5.1 mmol/L Chloride Level 100 98-107 mmol/L Carbon Dioxide Level 25 20-31 mmol/L Anion Gap 9 5-15 Blood Urea Nitrogen 14 9-23 mg/dL Creatinine 1.16 H 0.550-1.02 mg/dL Glomerular Filtration Rate Calc 51 >90 mL/min BUN/Creatinine Ratio 12.1 10.0-20.0 Serum Glucose 136 H 74-106 mg/dL Calcium Level 10.0 8.7-10.4 mg/dL Total Bilirubin 0.7 0.2-1.0 mg/dL Aspartate Amino Transferase (AST) 35 13-40 U/L Alanine Aminotransferase (ALT) 30 7-40 U/L Alkaline Phosphatase 78 46-116 U/L B-Type Natriuretic Peptide 141.68 0-100 pg/mL Total Protein 7.1 5.7-8.2 g/dL Albumin 4.6 3.2-4.8 g/dL Lipase 28 12-53 U/L Current Medications Medications (Trade) Dose Ordered Sig/Karolyn Route Start Time Stop Time Status Last Admin Sodium Chloride 1,000 ml @ 1,000 mls/hr Q1H ONCE IV 12/13/24 18:15 12/13/24 19:14 DC 12/13/24 18:37 Ondansetron HCl (Zofran) 4 mg ONCE ONCE IV 12/13/24 18:15 12/13/24 18:16 DC 12/13/24 18:51 Morphine Sulfate 2 mg ONCE ONCE IV 12/13/24 18:15 12/13/24 18:16 DC 12/13/24 18:56 Piperacillin Sod/ Tazobactam Sod 100 ml @ 100 mls/hr ONCE ONCE IV 12/13/24 20:30 12/13/24 21:29 DC 12/13/24 20:56 PROCEDURE(s): ABPL - CT AB PEL WO CON-NO ORAL OR IV REASON: abd pain, nausea constip ORDER NUMBER(s): [id number], ACCESSION NUMBER(s): [id number] Procedure: CT CT AB PEL WO CON-NO ORAL OR IV 12/13/2024 05:28 PM Indication: abd pain, nausea constip Comparison Study: CT CHST AB PEL WO CON-NO IV/ORAL on DOS: 02/27/24 Technique: Axial images were obtained and reformatted in coronal and sagittal planes. All CT scans at this medical facility are performed using dose modulation techniques as appropriate to a performed exam including the following: Automated exposure control was utilized; adjustment of the MA and/or KV according to patient size; and use of iterative reconstruction technique. CT Dose: CTDI volume is 5.9 mGy. Dose-length product is 321.94 mGy*cm FINDINGS: Lower Chest: Unremarkable. Hepatobiliary: Hepatic steatosis. Spleen: Unremarkable. Pancreas: Unremarkable. Adrenal Glands: Unremarkable. tract: The kidneys are normal in size bilaterally without hydronephrosis or nephrolithiasis. The urinary bladder is unremarkable. GI tract: The stomach is grossly normal in appearance. No evidence of small bowel obstruction . Moderate fecal retention noted in the ascending and transverse colon. Hard formed stool noted in the distal descending colon and proximal sigmoid colon. No rectal fecal impaction. Fat stranding noted adjacent to distal sigmoid colon . Distal sigmoid colon appears collapsed. Descending and sigmoid diverticulosis noted. The appendix is not visualized. No inflammatory change is noted in the right lower quadrant. Lymphatics: No mesenteric, retroperitoneal or periportal lymphadenopathy. Vasculature: The abdominal aorta is normal in caliber. Diffuse calcified plaque formation is noted. Pelvic Organs: Unremarkable Bones/soft tissues: No acute abnormality. Other: None. IMPRESSION: 1. Moderate fecal retention in the ascending and transverse colon. Hard formed stool in the distal descending colon and proximal sigmoid colon. No rectal fecal impaction. Distal sigmoid colon is collapsed , thick-walled and with adjacent fat stranding. Findings may reflect an infiltrative mural lesion or developing colitis or diverticulitis. Some of the diverticula are mildly thick- walled. Recommend clinical and biochemical correlation follow-up by CT scan with IV contrast or colonoscopy to ensure regression and benignity. No evidence of perforation at this time. X-Ray, Labs, Meds, VS Comment 69-year-old female with history of hypertension, diabetes, SLE and fibromyalgia brought in by EMS complaining of persistent abdominal pain no bowel movement for the past 7 days despite using enemas. Vitals unremarkable Exam remarkable for diffuse abdominal tenderness to palpation with mild-to-m oderate distention Rhythm strip independently interpreted by me: Sinus rhythm, rate 74, no ectopy. CT abdomen and pelvis IMPRESSION: 1. Moderate fecal retention in the ascending and transverse colon. Hard formed stool in the distal descending colon and proximal sigmoid colon. No rectal fecal impaction. Distal sigmoid colon is collapsed , thick-walled and with adjacent fat stranding. Findings may reflect an infiltrative mural lesion or developing colitis or diverticulitis. Some of the diverticula are mildly thick- walled. Recommend clinical and biochemical correlation follow-up by CT scan with IV contrast or colonoscopy to ensure regression and benignity. No evidence of perforation at this time. CBC unremarkable, metabolic panel remarkable for sodium 134, potassium 3.3, creatinine 1.16, lipase normal, troponin negative, BNP 141.68 UA pending Patient treated with the following in the ED: 1L 0.9 normal saline IV bolus, morphine 2 mg IV, Zofran 4 mg IV, Zosyn 4.5 g IV On re-evaluation, patient states she is still having moderate pain and cramping. Vitals were stable. Plan is to admit the patient for IV antibiotics and GI evaluation. Time of 1ST Reevaluation: 18:50 Reevaluation 1ST: Unchanged Patient Education/Counseling: Diagnosis, Treatment, Prognosis Family Education/Counseling: No Family Present Departure 1 Departure Time of Disposition: 20:30 Impression: Primary Impression: Constipation Qualified Codes: K59.00 - Constipation, unspecified Additional Impression: Colitis Disposition: ADMITTED INPATIENT Admit to: Med Surg Condition: Guarded Critical Care Note Critical Care Time?: No Stability Stability form required: No Heart Score Heart Score: Heart Score Response (Comments) Value History N/A 0 EKG N/A 0 Age N/A 0 Risk Factors N/A 0 Troponin N/A 0 Total 0 I personally scribed for LUANA HELMS MD ([email or web address]) on 12/13/24 at 19:19. Electronically submitted by Adolfo Scott ([email or web address]). ULANA HELMS MD Dec 13, 2024 19:19
[2024-12-13] MEDS: PIPERACILLIN-TAZO 4.5GM 100 ML IV ONE (20:56)
[2024-12-13] MEDS: FLEET ENEMA(ADULT) 135 ML PR ONE (23:11)
[2024-12-14] VITALS (8 sets, daily range): BP systolic 135–175; BP diastolic 70–91; PULSE 73–79; RESP 17–20; TEMP 97.9–98.6; O2SAT 97–100
[2024-12-14] MEDS ORDERED: DOCUSATE SOD 100 MG CAP PO PRN (01:00)
[2024-12-14] MEDS ORDERED: hydrALAZINE HCL 20 MG/ML VL IV PRN (01:00)
[2024-12-14] MEDS ORDERED: ONDANSETRON HCL 4 MG/2 ML VIAL IV PRN (01:00)
[2024-12-14] MEDS ORDERED: DEXTROSE (50%) 50ML SYRG IV PRN (01:00)
--- NOTE | 2024-12-14 01:37 | DVHHP2 ---
History of Present Illness Reason for Visit: Abdominal pain History of Present Illness The patient is a 69-year-old female with past medical history of chronic kidney failure, hypertension, DM, and fibromyalgia who presented to [facility] ED with complaint of abdominal pain. Patient reports symptoms progressively get worse with abdominal cramping, unable to have bowel movement for the past 1 week, had 3 enemas, including 1 administered by a home health nurse today without relief that prompted this visit. Patient was seen and evaluated in the ED, laboratory data shows WBC 9.5, platelets 243, sodium 134, potassium 3.3, BUN 14, creatinine 1.16, GFR 51, glucose 136, troponin three, li pase 28. Abdomen/pelvis CT revealing moderate fecal retention in the ascending and transverse colon, hard formed stool in the distal descending colon and proximal sigmoid colon, no rectal fecal impaction; distal sigmoid colon is collapsed, thick wall and with adjacent fat stranding; findings may reflect an infiltrative mural lesion or developing colitis or diverticulitis. Patient was started on IV antibiotic regimen Flagyl, please see medication orders section in the computer. On my assessment, patient denied chest pain, no headache, no dizziness, no shortness of breaths, no diarrhea, no nausea, no vomiting, no fever, no chills. Patient was admitted for further evaluation and medical management. Past Medical History DM, ESRD, HTN, Fibromyalgia Past Surgical History Appendectomy, Cholecystectomy, Hysterectomy Family History Reviewed, noncontributory to the management of this case. Past Social History The patient lives at home, denies smoking, alcohol or illicit drugs abuse. Review of Systems Constitutional: No: Fever, Chills, Sweats, Weakness, Malaise, Other Eyes: No: Pain, Vision change, Conjunctivae inflammation, Eyelid inflammation, Other, Redness ENT: No: Ear pain, Ear discharge, Nose pain, Nose discharge, Nose congestion, Mouth pain, Mouth swelling, Throat pain, Throat swelling, Other Respiratory: No: Cough, Dry, Shortness of breath, SOB with excertion, Wheezing, Hemoptysis, Pleuritic Pain, Sputum, Wheezing, Other Cardiovascular: No: Chest Pain, Palpitations, Orthopnea, Paroxysmal Noc. Dyspnea, Edema, Lt Headedness, Other Gastrointestinal: Abdominal Pain, Constipation; No: Nausea, Vomiting, Diarrhea, Melena, Hematochezia, Other Genitourinary: No Dysuria, No Frequency, No Incontinence, No Hematuria, No Retention, No Other Musculoskeletal: No: other, neck pain, shoulder pain, arm pain, back pain, hand pain, leg pain, foot pain Skin: No: Rash, Lesions, Jaundice, Bruising, Other Neurological: No: Weakness, Numbness, Incoordination, Change in speech, Confusion, Seizures, Other Allergies: Coded Allergies: NO KNOWN ALLERGIES (Unverified , 03/15/22) Medications Current Medications Medications Dose Ordered Sig/Karolyn Route Start Time Stop Time Status Last Admin Dose Admin Ceftriaxone Sodium 50 ml @ 100 mls/hr DAILY@09 IV 12/14/24 09:00 Amlodipine Besylate 5 mg DAILY PO 12/14/24 10:00 Hydralazine HCl 10 mg Q6HP PRN IV 12/14/24 01:00 Atorvastatin Calcium 20 mg HS PO 12/14/24 22:00 Famotidine 20 mg DAILY IV 12/14/24 10:00 Metoprolol Tartrate 50 mg BID PO 12/14/24 10:00 Diagnostic Test (Pha) 1 strip ACHS 12/14/24 07:00 Insulin Human Regular ACHS SC 12/14/24 07:00 Dextrose 50 ml UD PRN IV 12/14/24 01:00 Sodium Chloride 1,000 ml @ 60 mls/hr [id number] IV 12/14/24 01:00 Acetaminophen/ Hydrocodone Bitart 1 tab Q4HP PRN PO 12/14/24 01:00 Ondansetron HCl 4 mg Q4HP PRN IV 12/14/24 01:00 Docusate Sodium 100 mg BIDPRN PRN PO 12/14/24 01:00 Acetaminophen 650 mg Q6HP PRN PO 12/14/24 01:00 Exam Vital Signs Vital Signs Date Time Temp Pulse Resp B/P (MAP) Pulse Ox O2 Delivery O2 Flow Rate FiO2 12/14/24 00:20 Room Air* 0 21 12/13/24 23:11 89 18 142/82 12/13/24 18:41 98.7 97 98.7 General Appearance: Alert, Oriented X3, Cooperative, No acute distress HEENT: Atraumatic, PERRLA, EOMI, Mucous membr. moist/pink Respiratory: Clear to auscultation, Normal air movement Cardiovascular: Regular rate, Normal S1, Normal S2, No murmurs Abdominal: Normal bowel sounds, Soft, No hepatospenomegaly, No masses, Other (Reports tenderness) Extremities: No clubbing, No cyanosis, No edema, Normal pulses, No tenderness/swelling Skin: No rashes, No breakdown, No significant lesion Neuro: Normal gait, Normal speech, Strength at 5/5 X4 ext, Normal tone, Sensation intact, Cranial nerves 3-12 NL, Reflexes 2+ Psych/Mental Status: Mental status NL, Mood NL Labs/Xrays Labs Test 12/14/24 00:27 12/14/24 00:22 12/13/24 17:30 Range/Units POC Glucose 118 H 70-106 mg/dl Troponin I High Sensitivity < 3 L </=34 ng/L White Blood Count 9.5 4.4-10.8 10^3/uL Red Blood Count 4.24 4.0-5.20 10^6/uL Hemoglobin 12.2 12.2-16.2 g/dL Hematocrit 37.2 36.0-46.0 % Mean Corpuscular Volume 87.6 80.0-100.0 fL Mean Corpuscular Hemoglobin 28.8 28.0-32.0 pg Mean Corpuscular Hemoglobin Concent 32.9 32.0-36.0 g/dL Red Cell Distribution Width 14.1 11.8-14.3 % Platelet Count 243 140-450 10^3/uL Mean Platelet Volume 9.9 6.9-10.8 fL Neutrophils (%) (Auto) 75.8 37.0-80.0 % Lymphocytes (%) (Auto) 16.1 10.0-50.0 % Monocytes (%) (Auto) 7.7 0.0-12.0 % Eosinophils (%) (Auto) 0.1 0.0-7.0 % Basophils (%) (Auto) 0.3 0.0-2.0 % Neutrophils # (Auto) 7.2 1.6-8.6 10 ^3/uL Lymphocytes # (Auto) 1.5 0.4-5.4 10 ^3/uL Monocytes # (Auto) 0.7 0-1.3 10 ^3/uL Eosinophils # (Auto) 0 0-0.8 10 ^3/uL Basophils # (Auto) 0 0-0.2 10 ^3/uL Nucleated Red Blood Cells 0.0 % Sodium Level 134 L 136-145 mmol/L Potassium Level 3.3 L 3.5-5.1 mmol/L Chloride Level 100 98-107 mmol/L Carbon Dioxide Level 25 20-31 mmol/L Anion Gap 9 5-15 Blood Urea Nitrogen 14 9-23 mg/dL Creatinine 1.16 H 0.550-1.02 mg/dL Glomerular Filtration Rate Calc 51 >90 mL/min BUN/Creatinine Ratio 12.1 10.0-20.0 Serum Glucose 136 H 74-106 mg/dL Calcium Level 10.0 8.7-10.4 mg/dL Total Bilirubin 0.7 0.2-1.0 mg/dL Aspartate Amino Transferase (AST) 35 13-40 U/L Alanine Aminotransferase (ALT) 30 7-40 U/L Alkaline Phosphatase 78 46-116 U/L B-Type Natriuretic Peptide 141.68 0-100 pg/mL Total Protein 7.1 5.7-8.2 g/dL Albumin 4.6 3.2-4.8 g/dL Lipase 28 12-53 U/L PATIENT: NABILA RIVERA ACCT: [id number] UNIT: [id number] : 1955 LOC: ER ROOM / BED: / AGE / SEX: 69 / F ADM STATUS: REG ER SERVICE 171 ORDERING PHYSICIAN: LUANA HELMS MD PROCEDURE(s): ABPL - CT AB PEL WO CON-NO ORAL OR IV REASON: abd pain, nausea constip ORDER NUMBER(s): [id number], ACCESSION NUMBER(s): [id number] Procedure: CT CT AB PEL WO CON-NO ORAL OR IV 12/13/2024 05:28 PM Indication: abd pain, nausea constip Comparison Study: CT CHST AB PEL WO CON-NO IV/ORAL on DOS: 02/27/24 Technique: Axial images were obtained and reformatted in coronal and sagittal planes. All CT scans at this medical facility are performed using dose mo dulation techniques as appropriate to a performed exam including the following: Automated exposure control was utilized; adjustment of the MA and/or KV according to patient size; and use of iterative reconstruction technique. CT Dose: CTDI volume is 5.9 mGy. Dose-length product is 321.94 mGy*cm FINDINGS: Lower Chest: Unremarkable. Hepatobiliary: Hepatic steatosis. Spleen: Unremarkable. Pancreas: Unremarkable. Adrenal Glands: Unremarkable. tract: The kidneys are normal in size bilaterally without hydronephrosis or nephrolithiasis. The urinary bladder is unremarkable. GI tract: The stomach is grossly normal in appearance. No evidence of small bowel obstruction. Moderate fecal retention noted in the ascending and transverse colon. Hard formed stool noted in the distal descending colon and proximal sigmoid colon. No rectal fecal impaction. Fat stranding noted adjacent to distal sigmoid colon . Distal sigmoid colon appears collapsed. Descending and sigmoid diverticulosis noted. The appendix is not visualized. No inflammatory change is noted in the right lower quadrant. Lymphatics: No mesenteric, retroperitoneal or periportal lymphadenopathy. Vasculature: The abdominal aorta is normal in caliber. Diffuse calcified plaque formation is noted. Pelvic Organs: Unremarkable Bones/soft tissues: No acute abnormality. Other: None. IMPRESSION: 1. Moderate fecal retention in the ascending and transverse colon. Hard formed stool in the distal descending colon and proximal sigmoid colon. No rectal fecal impaction. Distal sigmoid colon is collapsed, thick-walled and with adjacent fat stranding. Findings may reflect an infiltrative mural lesion or developing colitis or diverticulitis. Some of the diverticula are mildly thick-walled. Recommend clinical and biochemical correlation follow-up by CT scan with IV contrast or colonoscopy to ensure regression and benignity. No evidence of perfo ration at this time. Assessment/Plan Assessment/Plan Constipation Constipation, unspecified Colitis Electrolyte imbalance Acute abdominal pain Plan 1. Admit to med surge unit 2. Breathing treatment 3. Pain control management 4. IV antibiotic management 5. Management of fluids and electrolytes 6. Consultation for GI for possible colonoscopy 7. Diagnostic test abdomen/pelvis CT 8. DVT prophylaxis-on SCDs 9. Repeat labs CBC, CMP in a.m. 10. Home medication reviewed and reconciled 11. Continue with current medical management 12. Treatment plan discussed with patient and RN. Patient verbalized understanding. Plan discussed with: Patient, Other (RN) My Orders Orders - ISABEL ESTRELLA DNP Procedure Category Date Status Time Complete Blood Count LAB 12/14/24 Logged 04:00 Comprehensive LAB 12/14/24 Logged Metabolic Panel 04:00 Ceftriaxone 1gm/50ml PHA 12/14/24 In Process D5w (Rocephin) 09:00 Amlodipine Tablet PHA 12/14/24 In Process (Norvasc Tablet) 10:00 Hydralazine Injection PHA 12/14/24 In Process (Apresoline Inject 01:00 Atorvastatin (Lipitor) PHA 12/14/24 In Process 22:00 Famotidine Injection PHA 12/14/24 In Process (Pepcid Injection) 10:00 Metoprolol Tartrate PHA 12/14/24 In Process Tablet (Lopressor Ta 10:00 Consistent DIET 12/14/24 Transmitted Carb(Ccho)Diabetes Breakfast Glucose Blood PHA 12/14/24 In Process (Accu-Chek Comfort 07:00 Insulin R (Human) PHA 12/14/24 In Process (Insulin R) 07:00 Dextrose 50% Syringe PHA 12/14/24 In Process 01:00 Allergies AUDREY 12/14/24 In Process 00:58 Code Status CODE 12/14/24 Transmitted 00:58 Sodium Chloride 0.9% PHA 12/14/24 In Process 01:00 Oxygen Per Hour RT 12/14/24 Transmitted 00:58 Hydrocodone-Acet PHA 12/14/24 In Process 5/325mg Tab ([place] 01:00 Ondansetron Hcl PHA 12/14/24 In Process (Zofran) 01:00 Docusate Sodium PHA 12/14/24 In Process Capsule (Colace 01:00 Complete Blood Count LAB 12/15/24 Verified 04:00 Comprehensive LAB 12/15/24 Verified Metabolic Panel 04:00 Condition: Serious AUDREY 12/14/24 In Process 00:58 Acetaminophen Tablet PHA 12/14/24 In Process (Tylenol Tablet) 01:00 Bedrest With Bathroom AUDREY 12/14/24 In Process Privileg 00:58 Sequential AUDREY 12/14/24 In Process Compression Device Problem List: (1) Constipation (2) Constipation, unspecified (3) Colitis (4) Electrolyte imbalance (5) Acute abdominal pain Date of Service: Dec 14, 2024 Billing Provider: ISABEL ESTRELLA DNP Common Visit Codes: [id number] INP/OBS CARE (HIGH) ISABEL ESTRELLA DNP Dec 14, 2024 01:37
[2024-12-14] MEDS ORDERED: NITROGLYCERIN 0.4 MG SL TAB SL PRN (01:45)
[2024-12-14] MEDS ORDERED: MORPHINE SULFATE INJ 2 MG/ml SYRG IV PRN (01:45)
[2024-12-14] MEDS: POTASSIUM CHL 20 Meq TABLET PO ONE (02:28)
[2024-12-14] MEDS: SODIUM CHLORIDE 0.9% 1,000 ML IV SCH (02:28)
[2024-12-14] MEDS: HYDROcodone-ACET 5/325MG TAB PO PRN (04:30)
[2024-12-14] MEDS: metroNIDAZOLE 500MG/100ML 100 ML IV SCH (06:16)
[2024-12-14] MEDS: ACCU-CHEK COMFORT CURVE STRIP VI SCH (06:16)
[2024-12-14] MEDS: InsuLIN REG 1unit/0.01ml Soln (100units/ml) SC SCH (06:47)
[2024-12-14 06:55] LABS: Basophils # (auto) 0 10 ^3/uL (0-0.2); Basophils % (auto) 0.3 % (0.0-2.0); Eosinophils # (auto) 0 10 ^3/uL (0-0.8); Eosinophils % (auto) 0.2 % (0.0-7.0); Hematocrit 31.7 % (36.0-46.0); Hemoglobin 10.7 g/dL (12.2-16.2); Lymphocytes # (auto) 2.2 10 ^3/uL (0.4-5.4); Lymphocytes % (auto) 26.7 % (10.0-50.0); Mean Corpuscular Hemoglobin 30.2 pg (28.0-32.0); Mean Corpuscular Hgb Conc. 33.9 g/dL (32.0-36.0); Mean Corpuscular Volume 89.2 fL (80.0-100.0); Monocytes # (auto) 0.6 10 ^3/uL (0-1.3); Monocytes % (auto) 7.6 % (0.0-12.0); Neutrophils # (auto) 5.5 10 ^3/uL (1.6-8.6); Neutrophils % (auto) 65.2 % (37.0-80.0); Nucleated Red Blood Cells % 0.1 %; Platelet Count (auto) 182 10^3/uL (140-450); Red Blood Cells 3.56 10^6/uL (4.0-5.20); Red Cell Distribution Width 14.1 % (11.8-14.3); White Blood Cell 8.4 10^3/uL (4.4-10.8)
[2024-12-14 07:14] LABS: Alanine Aminotransferase 38 U/L (7-40); Alkaline Phosphatase 83 U/L (46-116); Anion Gap 9 (5-15); BUN/Creatinine Ratio 12.2 (10.0-20.0); Blood Urea Nitrogen 11 mg/dL (9-23); Calcium 8.9 mg/dL (8.7-10.4); Carbon Dioxide 22 mmol/L (20-31); Chloride 106 mmol/L (98-107); Glucose 102 mg/dL (74-106); Potassium 3.5 mmol/L (3.5-5.1); Sodium 137 mmol/L (136-145); Total Protein 6.2 g/dL (5.7-8.2)
[2024-12-14 07:15] LABS: Bilirubin, Total 0.6 mg/dL (0.2-1.0)
[2024-12-14 07:28] LABS: Aspartate Aminotransferase 73 U/L (13-40)
[2024-12-14] MEDS: METOPROLOL TARTRATE 50 MG TAB PO SCH (08:31)
[2024-12-14] MEDS: FAMOTIDINE (10MG/ML) 2ML VL IV SCH (08:31)
[2024-12-14] MEDS: cefTRIAXone 1GM/50ML D5W 50 ML IV SCH (08:31)
[2024-12-14] MEDS: amLODIPine BESYLATE 5 MG TAB PO SCH (08:31)
[2024-12-14] MEDS ORDERED: LORA-1121 PO (11:29)
--- NOTE | 2024-12-14 13:26 | DVHPN2 ---
Reviewed: Care Plan, H&P, Labs, Medications, Previous Orders, Radiology Changes from previous H/P or p: No Changes Eyes: No Pain, No Vision change, No Conjunctivae inflammation, No Eyelid inflammation, No Other, No Redness ENT: No Ear pain, No Ear discharge, No Nose pain, No Nose discharge, No Nose congestion, No Mouth pain, No Mouth swelling, No Throat pain, No Throat swelling, No Other Cardiovascular: No Chest Pain, No Palpitations, No Orthopnea, No Paroxysmal Noc. Dyspnea, No Edema, No Lt Headedness, No Other Respiratory: No Cough, No Dry, No Shortness of breath, No SOB with excertion, No Wheezing, No Hemoptysis, No Pleuritic Pain, No Sputum, No Other Gastrointestinal: No Nausea, No Vomiting; Abdominal Pain; No Diarrhea; C onstipation; No Melena, No Hematochezia, No Other Genitourinary: No Dysuria, No Frequency, No Incontinence, No Hematuria, No Retention, No Other Musculoskeletal: No other, No neck pain, No shoulder pain, No arm pain, No back pain, No hand pain, No leg pain, No foot pain Skin: No Rash, No Lesions, No Jaundice, No Bruising, No Other Objective Vitals Vital Signs Date Time Temp Pulse Resp B/P (MAP) Pulse Ox O2 Delivery O2 Flow Rate FiO2 12/14/24 08:31 74 140/73 12/14/24 08:13 98.4 17 97 98.4 12/14/24 04:29 Room Air* 0 21 Intake/Output Intake and Output 12/14/24 07:00 Intake Total 1000 ml Balance 1000 ml Intake Oral 0 ml IV Total 1000 ml Medications Current Medications Medications Dose Ordered Sig/Karolyn Route Start Time Stop Time Status Last Admin Dose Admin Ceftriaxone Sodium 50 ml @ 100 mls/hr DAILY@09 IV 12/14/24 09:00 12/14/24 08:31 100 MLS/HR Amlodipine Besylate 5 mg DAILY PO 12/14/24 10:00 12/14/24 08:31 5 MG Hydralazine HCl 10 mg Q6HP PRN IV 12/14/24 01:00 Atorvastatin Calcium 20 mg HS PO 12/14/24 22:00 Famotidine 20 mg DAILY IV 12/14/24 10:00 12/14/24 08:31 20 MG Metoprolol Tartrate 50 mg BID PO 12/14/24 10:00 12/14/24 08:31 50 MG Diagnostic Test (Pha) 1 strip ACHS 12/14/24 07:00 12/14/24 11:37 1 STRIP Insulin Human Regular ACHS SC 12/14/24 07:00 Dextrose 50 ml UD PRN IV 12/14/24 01:00 Sodium Chloride 1,000 ml @ 60 mls/hr [id number] IV 12/14/24 01:00 12/14/24 02:28 60 MLS/HR Acetaminophen/ Hydrocodone Bitart 1 tab Q4HP PRN PO 12/14/24 01:00 12/14/24 04:30 1 TAB Ondansetron HCl 4 mg Q4HP PRN IV 12/14/24 01:00 Docusate Sodium 100 mg BIDPRN PRN PO 12/14/24 01:00 Acetaminophen 650 mg Q6HP PRN PO 12/14/24 01:00 Nitroglycerin 0.4 mg Q5MINP PRN SL 12/14/24 01:45 Morphine Sulfate 2 mg Q30M PRN IV 12/14/24 01:45 Metronidazole 100 ml @ 100 mls/hr Q8HR IV 12/14/24 06:00 12/14/24 06:16 100 MLS/HR Laboratory Results Laboratory Tests 12/14/24 06:02 Chemistry Test 12/13/24 17:30 12/14/24 06:02 Albumin 4.6 g/dL (3.2-4.8) 4.0 g/dL (3.2-4.8) Calcium Level 10.0 mg/dL (8.7-10.4) 8.9 mg/dL (8.7-10.4) Total Protein 7.1 g/dL (5.7-8.2) 6.2 g/dL (5.7-8.2) Lipid panel Test 12/13/24 17:30 Lipase 28 U/L (12-53) Cardiac Markers Test 12/13/24 17:30 B-Type Natriuretic Peptide 141.68 pg/mL (0-100) LFT Test 12/13/24 17:30 12/14/24 06:02 Alanine Aminotransferase (ALT) 30 U/L (7-40) 38 U/L (7-40) Alkaline Phosphatase 78 U/L (46-116) 83 U/L (46-116) Aspartate Amino Transferase (AST) 35 U/L (13-40) 73 U/L (13-40) H Total Bilirubin 0.7 mg/dL (0.2-1.0) 0.6 mg/dL (0.2-1.0) Labs and/or images reviewed: Labs reviewed by me, Image(s) reviewed by me Assessment/Plan Assessment/Plan Constipation: Consult for GI Dr. Zafar Colitis Electrolyte imbalance Acute abdominal pain Diabetes Hypertension Fibromyalgia Lupus Anxiety: Ativan Per patient she was on hospice for CHF and she does not want to be on hospice anymore Lives alone Time spent 65 minutes Patient is full code Advanced care planning time 20 mts Plan discussed with: Patient Date of Service: Dec 14, 2024 Billing Provider: HAILEE URBANO MD Common Visit Codes: [id number] CARE 30-74 MIN HAILEE URBANO MD Dec 14, 2024 13:26
[2024-12-14] MEDS: LORazepam 0.5 MG TAB PO SCH (13:58)
--- NOTE | 2024-12-14 15:43 | DVHINCON2 ---
Date of service: Dec 14, 2024 Referring Physician Sally Reddy Reason for Consultation Constipation History of Present Illness The patient is a 69-year-old female with hypertension, end-stage renal disease, fibromyalgia, hyperlipidemia, who was admitted with abdominal pain in seven days without having a bowel movement. [facility] and she sees the nurse practitioner. Patient states that she had a colonoscopy several months ago which did not show any significant findings. Patient denies any bleeding. She states that she is beginning to have bowel movements. Patient states that she was taking lactulose at home as well as enemas and suppositories with little relief. Patient also states that she does not take significant pain medication although was taking pain medication recently due to the cramping abdominal pain that she has been having. Patient complains of abdominal distention and bloating but states that since admission her symptoms have improved as she is now going to the bathroom. Past Medical History As above Past Surgical History Cholecystectomy Hysterectomy Tubal ligation Family History: Cardiac disorder G8 FATHER FH: lymphoma G8 MOTHER Family History No gastrointestinal diseases or malignancies Social History Lives at home No tobacco alcohol or recreational drug use Allergies: Coded Allergies: NO KNOWN ALLERGIES (Unverified , 03/15/22) Home Meds Active Scripts Meclizine HCl (Meclizine) 25 Mg Chw, 25 MG PO BIDWM for 10 Days, #10 CHW Prov:KASHIF CABALLERO MD 03/15/22 Reported Medications Lorazepam (ATIVAN TABLET) 0.5 Mg Tb, 1 TAB PO BID PRN for ANXIETY, #60 TAB 12/14/24 Latanoprost (LATANOPROST) 0.005 % Sammie, 1 DROP EACHEYE 02/29/24 Timolol Maleate (Ophth) (Timolol Maleate) 0.5 % Sammie, 1 DROP EACHEYE BID 02/29/24 Atorvastatin Calcium (ATORVASTATIN CALCIUM) 20 Mg Tab, 20 MG PO DAILY, TAB 02/28/24 Gabapentin (Gabapentin) 300 Mg Cap, 300 MG PO for 30 Days, MG 02/28/24 Furosemide (Lasix) 20 Mg Tb, 20 MG GT, TAB 02/28/24 Semaglutide (Rybelsus) 7 Mg Tab, 7 MG PO, TAB 02/28/24 Allopurinol (Allopurinol) 100 Mg Tab, 100 MG PO DAILY for 30 Days, MG 02/28/24 Bupropion Hcl (Bupropion Hcl) 100 Mg Tab, 100 MG PO Q8HR for 30 Days, MG 02/28/24 Trazodone Hcl (Trazodone Hcl) 150 Mg Tab, 150 MG PO, MG 02/28/24 Aripiprazole (Abilify) 2 Mg Tab, 2 MG PO, TAB 02/28/24 Fenofibrate (FENOFIBRATE) 145 Mg Tab, 145 MG OR, TAB 02/28/24 Amlodipine Besylate (Amlodipine Besylate) 5 Mg Tab, 5 MG PO DAILY for 30 Days, MG 02/28/24 Lisinopril (Lisinopril) 40 Mg Tab, 40 MG PO DAILY for 30 Days, MG 02/28/24 Hydralazine Hcl (Hydralazine Hcl) 50 Mg Tab, 50 MG PO for 30 Days, MG 02/28/24 Metoprolol Succinate (Metoprolol Succinate Er) 200 Mg Tab, 200 MG PO, TAB 02/28/24 Clonidine Hydrochloride (Clonidine Hcl) 0.1 Mg Tab, 0.1 MG PO BIDBL for 30 Days, MG 02/28/24 Hydroxychloroquine Sulfate (PLAQUENIL) 200 Mg Tab, 200 MG OR, TAB 02/28/24 Carbidopa-Levodopa (Carbidopa/Levodopa Odt 25-100 mg) 1 Tab Tab, 1 TAB PO, TAB 02/28/24 Mycophenolate Mofetil (Cellcept) 500 Mg Tab, 2 TAB PO BID, #360 TAB 3 Refills 02/28/24 Linaclotide Base (LINZESS) 145 Mcg Cap, 145 MCG OR, CAP 02/28/24 Baclofen (Baclofen) 10 Mg Tab, 10 MG PO Q8HP PRN for BREAKTHROUGH PAIN for 30 Days, MG 02/28/24 Cholecalciferol (D3) 1,000 Unit Tab, 1000 UNIT PO, TAB 02/28/24 Ascorbic Acid (C 500) 500 Mg Chw, 500 MG PO, TAB.CHEW 02/28/24 Multiple Vitamins W/ Minerals (One Daily Multivitamin Wo) 1 Tab Tab, 1 TAB PO, TAB 02/28/24 Current Medications Current Medications Medications (Trade) Dose Ordered Sig/Karolyn Route PRN Reason Start Time Stop Time Status Last Admin Ceftriaxone Sodium 50 ml @ 100 mls/hr DAILY@09 IV 12/14/24 09:00 12/14/24 08:31 Amlodipine Besylate (Norvasc Tablet) 5 mg DAILY PO 12/14/24 10:00 12/14/24 08:31 Hydralazine HCl (Apresoline Injection) 10 mg Q6HP PRN IV SBP>150 12/14/24 01:00 Atorvastatin Calcium (Lipitor) 20 mg HS PO 12/14/24 22:00 Famotidine (Pepcid Injection) 20 mg DAILY IV 12/14/24 10:00 12/14/24 08:31 Metoprolol Tartrate (Lopressor Tablet) 50 mg BID PO 12/14/24 10:00 12/14/24 08:31 Diagnostic Test (Pha) (Accu-Chek Comfort Curve T) 1 strip ACHS 12/14/24 07:00 12/14/24 11:37 Insulin Human Regular (InsuLIN R) ACHS SC 12/14/24 07:00 Dextrose 50 ml UD PRN IV Blood Sugar LESS THAN 60 12/14/24 01:00 Sodium Chloride 1,000 ml @ 60 mls/hr [id number] IV 12/14/24 01:00 12/14/24 02:28 Acetaminophen/ Hydrocodone Bitart (Burdick 5/325MG Tab) 1 tab Q4HP PRN PO MODERATE PAIN (4-6 PAIN SCALE) 12/14/24 01:00 12/14/24 04:30 Ondansetron HCl (Zofran) 4 mg Q4HP PRN IV NAUSEA / VOMITING 12/14/24 01:00 Docusate Sodium (Colace Capsule) 100 mg BIDPRN PRN PO FOR CONSTIPATION 12/14/24 01:00 Acetaminophen (Tylenol Tablet) 650 mg Q6HP PRN PO PAIN SCALE 1-3 OR TEMP>100.4 12/14/24 01:00 Nitroglycerin (Ntrostat Sublingual) 0.4 mg Q5MINP PRN SL FOR CHEST PAIN 12/14/24 01:45 Morphine Sulfate 2 mg Q30M PRN IV FOR CHEST PAIN 12/14/24 01:45 Metronidazole 100 ml @ 100 mls/hr Q8HR IV 12/14/24 06:00 12/14/24 13:16 Acetaminophen/ Codeine Phosphate (Tylenol W/Cod #3 Tablet) 1 tab Q6HR PO 12/14/24 18:00 Lorazepam (Ativan Tablet) 1 mg TID PO 12/14/24 14:00 Review of Systems Constitutional: No fevers or chills Head: No headaches or dizziness no vision changes Cardiac: No chest pain or palpitations PULM: No cough wheeze or shortness of breath Rheumatology: No arthralgias or new myalgias, she does have fibromyalgia Endocrine: Diabetes Heme: History of anemia no malignancy Skin: No rashes or bruises GI: See HPI Psych: No psychosis depression or anxiety Vital Signs Vital Signs Date Time Temp Pulse Resp B/P (MAP) Pulse Ox O2 Delivery O2 Flow Rate FiO2 12/14/24 13:00 98.0 73 20 149/78 (101) 98 98.0 12/14/24 07:40 Room Air* 0 21 Physical Exam General: Alert and oriented x4 no distress HEENT: Normocephalic atraumatic EOMI, PERRLA, O/P clear Heart: Regular rate and rhythm Abdomen: Soft, mildly tender and mildly distended, no masses, normoactive bowel sounds Extremity: No clubbing cyanosis or edema Labs/Diagnostic Data Labs Test 12/14/24 11:36 12/14/24 06:02 12/13/24 17:30 Range/Units POC Glucose 118 H 70-106 mg/dl White Blood Count 8.4 4.4-10.8 10^3/uL Red Blood Count 3.56 L 4.0-5.20 10^6/uL Hemoglobin 10.7 L 12.2-16.2 g/dL Hematocrit 31.7 #L 36.0-46.0 % Mean Corpuscular Volume 89.2 80.0-100.0 fL Mean Corpuscular Hemoglobin 30.2 28.0-32.0 pg Mean Corpuscular Hemoglobin Concent 33.9 32.0-36.0 g/dL Red Cell Distribution Width 14.1 11.8-14.3 % Platelet Count 182 140-450 10^3/uL Mean Platelet Volume 10.2 6.9-10.8 fL Neutrophils (%) (Auto) 65.2 37.0-80.0 % Lymphocytes (%) (Auto) 26.7 10.0-50.0 % Monocytes (%) (Auto) 7.6 0.0-12.0 % Eosinophils (%) (Auto) 0.2 0.0-7.0 % Basophils (%) (Auto) 0.3 0.0-2.0 % Neutrophils # (Auto) 5.5 1.6-8.6 10 ^3/uL Lymphocytes # (Auto) 2.2 0.4-5.4 10 ^3/uL Monocytes # (Auto) 0.6 0-1.3 10 ^3/uL Eosinophils # (Auto) 0 0-0.8 10 ^3/uL Basophils # (Auto) 0 0-0.2 10 ^3/uL Nucleated Red Blood Cells 0.1 % Sodium Level 137 136-145 mmol/L Potassium Level 3.5 3.5-5.1 mmol/L Chloride Level 106 98-107 mmol/L Carbon Dioxide Level 22 20-31 mmol/L Anion Gap 9 5-15 Blood Urea Nitrogen 11 9-23 mg/dL Creatinine 0.90 0.550-1.02 mg/dL Glomerular Filtration Rate Calc 69 >90 mL/min BUN/Creatinine Ratio 12.2 10.0-20.0 Serum Glucose 102 74-106 mg/dL Calcium Level 8.9 8.7-10.4 mg/dL Total Bilirubin 0.6 0.2-1.0 mg/dL Aspartate Amino Transferase (AST) 73 H 13-40 U/L Alanine Aminotransferase (ALT) 38 7-40 U/L Alkaline Phosphatase 83 46-116 U/L Troponin I High Sensitivity 3 L </=34 ng/L Total Protein 6.2 5.7-8.2 g/dL Albumin 4.0 3.2-4.8 g/dL B-Type Natriuretic Peptide 141.68 0-100 pg/mL Lipase 28 12-53 U/L IMPRESSION: 1. Moderate fecal retention in the ascending and transverse colon. Hard formed stool in the distal descending colon and proximal sigmoid colon. No rectal f ecal impaction. Distal sigmoid colon is collapsed , thick-walled and with adjacent fat stranding. Findings may reflect an infiltrative mural lesion or developing colitis or diverticulitis. Some of the diverticula are mildly thick- walled. Recommend clinical and biochemical correlation follow-up by CT scan with IV contrast or colonoscopy to ensure regression and benignity. No evidence of perforation at this time. Assessment 1. Abdominal pain 2. Constipation 3. Abnormal CT scan 4. Fecal impaction 5. Chronic kidney disease, end-stage renal disease Differential diagnosis includes constipation versus diverticulosis with possible early diverticulitis. Patient states that she had a colonoscopy several months ago with a gastro group. She states it was normal given the findings on CT scan not sure if the patient had diverticulosis in the past or other findings. Regardless, patient's symptoms are resolving as she is having bowel movements. Problems(with codes): (1) Constipation (2) Acute metabolic encephalopathy (3) Vertigo (4) Hypoglycemia (5) Acute abdominal pain Plan/Recommendation 1. Follow electrolytes and replace 2. Continue with laxatives, stool softeners 3. If the patient's symptoms worsen consider antibiotics for diverticular disease and/or repeat CT scan 4. Follow up with Gastro group if the patient is discharged 5. Caution with pain medication as this may exacerbate constipation 6. Diet as tolerated Plan discussed with: Patient CASSIDY RIVERA MD Dec 14, 2024 15:43
--- NOTE | 2024-12-14 18:29 | DVHINCON2 ---
Date of Service if different f: Dec 14, 2024 Consultation ([facility]) Consulting Physician: MAITE ENGLISH MD Progress: Somewhat better Labs Laboratory Tests Test 12/13/24 17:30 12/14/24 06:02 12/14/24 11:36 B-Type Natriuretic Peptide 141.68 pg/mL (0-100) Lipase 28 U/L (12-53) White Blood Count 8.4 10^3/uL (4.4-10.8) Red Blood Count 3.56 10^6/uL (4.0-5.20) Hemoglobin 10.7 g/dL (12.2-16.2) Hematocrit 31.7 % (36.0-46.0) Mean Corpuscular Volume 89.2 fL (80.0-100.0) Mean Corpuscular Hemoglobin 30.2 pg (28.0-32.0) Mean Corpuscular Hemoglobin Concent 33.9 g/dL (32.0-36.0) Red Cell Distribution Width 14.1 % (11.8-14.3) Platelet Count 182 10^3/uL (140-450) Mean Platelet Volume 10.2 fL (6.9-10.8) Neutrophils (%) (Auto) 65.2 % (37.0-80.0) Lymphocytes (%) (Auto) 26.7 % (10.0-50.0) Monocytes (%) (Auto) 7.6 % (0.0-12.0) Eosinophils (%) (Auto) 0.2 % (0.0-7.0) Basophils (%) (Auto) 0.3 % (0.0-2.0) Neutrophils # (Auto) 5.5 10 ^3/uL (1.6-8.6) Lymphocytes # (Auto) 2.2 10 ^3/uL (0.4-5.4) Monocytes # (Auto) 0.6 10 ^3/uL (0-1.3) Eosinophils # (Auto) 0 10 ^3/uL (0-0.8) Basophils # (Auto) 0 10 ^3/uL (0-0.2) Nucleated Red Blood Cells 0.1 % Sodium Level 137 mmol/L (136-145) Potassium Level 3.5 mmol/L (3.5-5.1) Chloride Level 106 mmol/L (98-107) Carbon Dioxide Level 22 mmol/L (20-31) Anion Gap 9 (5-15) Blood Urea Nitrogen 11 mg/dL (9-23) Creatinine 0.90 mg/dL (0.550-1.02) Glomerular Filtration Rate Calc 69 mL/min (>90) BUN/Creatinine Ratio 12.2 (10.0-20.0) Serum Glucose 102 mg/dL (74-106) Calcium Level 8.9 mg/dL (8.7-10.4) Total Bilirubin 0.6 mg/dL (0.2-1.0) Aspartate Amino Transf (AST/SGOT) 73 U/L (13-40) Alanine Aminotransferase (ALT/SGPT) 38 U/L (7-40) Alkaline Phosphatase 83 U/L (46-116) Troponin I High Sensitivity 3 ng/L (</=34) Total Protein 6.2 g/dL (5.7-8.2) Albumin 4.0 g/dL (3.2-4.8) Bedside Glucose 118 mg/dl (70-106) Appetite: Fair Side effects of medications: No Appearance: Stated age Psychomotor activity: WNL Behavioral: Cooperative Eye contact: Appropriate Speech: WNL Affect: Appropriate Mood: Anxious Thought processes: Linear/Goal-directed Thought content: WNL Suicidal ideations: Absent Homicidal ideations: Absent Orientation: Person, Place, Time, Situation Memory intact: Recent Intellect: Average Abstractability: WNL Concentration: Adequate Attention: Adequate Judgement: WNL Insight: Good Vitals Vital Signs Date Time Temp Pulse Resp B/P (MAP) Pulse Ox O2 Delivery O2 Flow Rate FiO2 12/14/24 13:00 98.0 73 20 149/78 (101) 98 98.0 12/14/24 07:40 Room Air* 0 21 Current medications Current Medications Medications Dose Ordered Sig/Karolyn Route Start Time Stop Time Status Last Admin Dose Admin Ceftriaxone Sodium 50 ml @ 100 mls/hr DAILY@09 IV 12/14/24 09:00 12/14/24 08:31 100 MLS/HR Amlodipine Besylate 5 mg DAILY PO 12/14/24 10:00 12/14/24 08:31 5 MG Hydralazine HCl 10 mg Q6HP PRN IV 12/14/24 01:00 Atorvastatin Calcium 20 mg HS PO 12/14/24 22:00 Famotidine 20 mg DAILY IV 12/14/24 10:00 12/14/24 08:31 20 MG Metoprolol Tartrate 50 mg BID PO 12/14/24 10:00 12/14/24 08:31 50 MG Diagnostic Test (Pha) 1 strip ACHS 12/14/24 07:00 12/14/24 11:37 1 STRIP Insulin Human Regular ACHS SC 12/14/24 07:00 Dextrose 50 ml UD PRN IV 12/14/24 01:00 Sodium Chloride 1,000 ml @ 60 mls/hr [id number] IV 12/14/24 01:00 12/14/24 02:28 60 MLS/HR Acetaminophen/ Hydrocodone Bitart 1 tab Q4HP PRN PO 12/14/24 01:00 12/14/24 04:30 1 TAB Ondansetron HCl 4 mg Q4HP PRN IV 12/14/24 01:00 Docusate Sodium 100 mg BIDPRN PRN PO 12/14/24 01:00 Acetaminophen 650 mg Q6HP PRN PO 12/14/24 01:00 Nitroglycerin 0.4 mg Q5MINP PRN SL 12/14/24 01:45 Morphine Sulfate 2 mg Q30M PRN IV 12/14/24 01:45 Metronidazole 100 ml @ 100 mls/hr Q8HR IV 12/14/24 06:00 12/14/24 13:16 100 MLS/HR Acetaminophen/ Codeine Phosphate 1 tab Q6HR PO 12/14/24 18:00 Lorazepam 1 mg TID PO 12/14/24 14:00 Treatment plan discussed: With staff Medication adjusted: No Labs ordered: No Psychotherapy provided: No Type: Voluntary Diagnosis: Adjustment disorder with anxious mood. Plan : The pt is a little upset that her home meds have not been restarted while she has been in the hospital. She is afraid that she will get sick again and wants the meds to be restarted by her doctor. She is unhappy that her doctor is not listening to her concerns related to these meds. She denies any feelings of anxiety for any other reasons, she presents as logical, forthright, goal directed, denies any SI. HI and AVH. It is recommended that her home meds be restarted if/when appropriate per primary team. History of Present Illness Reason for Consult : Anxiety. HPI : Pt was admitted to the hospital for constipation that has recently resolved and the pt appears to be near baseline with improved bowel movements and improving oral intake allowances. Dr. Richardson consulted to assess for and recommend meds/strategies for anxiety. Pt says that she is not anxious, but rather she is upset b/c the doctor wont start the meds that she needs to be taking routinely. She needs to take eye drops for glaucoma and IOP - She takes timolol. For diabetes she takes Rybelsus that she takes every night. She has been taking Trazodone 150 mg for sleep for over 7 years and is stable on it. Pt has lupus as well takes mycophenolate 500 mg BID, plaquenal 200 mg daily. Pt takes HTN meds which include hydralazine 50 mg BID, lisinopril 40 mg daily. She is afraid that if she is not back on these meds that she is stable on she will get sick and deteriorate. Pt just wants to be back on her home meds. Pt denies feeling anxious, depressed, denies any SI, HI or AVH. Denies any hx of psychosis. Past Psychiatric History : Pt had an OP psychiatrist 7 yrs ago, now just sees and OP therapist regarding changes in her life, giving up independence and moving in with children, selling her home. Past Medical History : As above. Stage 3 ckd, fibromyalgia, HTN, lupus and glaucoma. Social History : Lives alone currently, selling her house this weekend so she can move in with her grand daughter. Next week. Assessment/Diagnosis/Plan Reviewed: Care Plan MAITE ENGLISH MD Dec 14, 2024 18:29
[2024-12-14] MEDS: ACETAMINOPHEN/CODEINE#3 (300/30mg) TAB PO SCH (18:47)
[2024-12-14] MEDS ORDERED: ONDA-180 (19:22)
[2024-12-14] MEDS ORDERED: LIDO1PAD55 (19:22)
[2024-12-14] MEDS ORDERED: POTA1TAB (19:23)
[2024-12-14] MEDS: ATORVASTATIN 20 MG TAB PO SCH (22:35)
[2024-12-15] VITALS (7 sets, daily range): BP systolic 102–160; BP diastolic 60–86; PULSE 68–79; RESP 14–20; TEMP 97.8–99.5; O2SAT 94–97
[2024-12-15 06:12] LABS: Basophils # (auto) 0 10 ^3/uL (0-0.2); Basophils % (auto) 0.6 % (0.0-2.0); Eosinophils # (auto) 0.1 10 ^3/uL (0-0.8); Hematocrit 32.5 % (36.0-46.0); Hemoglobin 11.1 g/dL (12.2-16.2); Lymphocytes # (auto) 2.7 10 ^3/uL (0.4-5.4); Mean Corpuscular Hemoglobin 29.8 pg (28.0-32.0); Mean Corpuscular Hgb Conc. 34.1 g/dL (32.0-36.0); Mean Corpuscular Volume 87.5 fL (80.0-100.0); Monocytes # (auto) 0.5 10 ^3/uL (0-1.3); Neutrophils # (auto) 2.5 10 ^3/uL (1.6-8.6); Neutrophils % (auto) 42.4 % (37.0-80.0); Nucleated Red Blood Cells % 0.2 %; Platelet Count (auto) 213 10^3/uL (140-450); Red Blood Cells 3.71 10^6/uL (4.0-5.20); Red Cell Distribution Width 13.7 % (11.8-14.3); White Blood Cell 5.8 10^3/uL (4.4-10.8)
[2024-12-15 06:24] LABS: Alanine Aminotransferase 25 U/L (7-40); Alkaline Phosphatase 68 U/L (46-116); Anion Gap 10 (5-15); Aspartate Aminotransferase 27 U/L (13-40); BUN/Creatinine Ratio 14.6 (10.0-20.0); Blood Urea Nitrogen 15 mg/dL (9-23); Calcium 9.6 mg/dL (8.7-10.4); Carbon Dioxide 26 mmol/L (20-31); Chloride 105 mmol/L (98-107); Glucose 103 mg/dL (74-106); Potassium 3.6 mmol/L (3.5-5.1); Sodium 141 mmol/L (136-145)
[2024-12-15 06:25] LABS: Total Protein 6.2 g/dL (5.7-8.2)
[2024-12-15 06:26] LABS: Bilirubin, Total 0.4 mg/dL (0.2-1.0)
--- NOTE | 2024-12-15 09:54 | DVHPN2 ---
Reviewed: Care Plan, H&P, Labs, Medications, Previous Orders, Radiology Changes from previous H/P or p: No Changes Eyes: No Pain, No Vision change, No Conjunctivae inflammation, No Eyelid inflammation, No Other, No Redness ENT: No Ear pain, No Ear discharge, No Nose pain, No Nose discharge, No Nose congestion, No Mouth pain, No Mouth swelling, No Throat pain, No Throat swelling, No Other Cardiovascular: No Chest Pain, No Palpitations, No Orthopnea, No Paroxysmal Noc. Dyspnea, No Edema, No Lt Headedness, No Other Respiratory: No Cough, No Dry, No Shortness of breath, No SOB with excertion, No Wheezing, No Hemoptysis, No Pleuritic Pain, No Sputum, No Other Gastrointestinal: No Nausea, No Vomiting; Abdominal Pain; No Diarrhea; C onstipation; No Melena, No Hematochezia, No Other Genitourinary: No Dysuria, No Frequency, No Incontinence, No Hematuria, No Retention, No Other Musculoskeletal: No other, No neck pain, No shoulder pain, No arm pain, No back pain, No hand pain, No leg pain, No foot pain Skin: No Rash, No Lesions, No Jaundice, No Bruising, No Other Objective Vitals Vital Signs Date Time Temp Pulse Resp B/P (MAP) Pulse Ox O2 Delivery O2 Flow Rate FiO2 12/15/24 08:30 98.0 68 14 156/71 (99) 96 98.0 12/14/24 20:00 Room Air* 0 21 Intake/Output Intake and Output 12/15/24 07:00 Intake Total 1500 ml Output Total 400 ml Balance 1100 ml Intake Oral 1250 ml IV Total 250 ml Output Urine Total 400 ml # Voids 4 # Bowel Movements 4 Medications Current Medications Medications Dose Ordered Sig/Karolyn Route Start Time Stop Time Status Last Admin Dose Admin Ceftriaxone Sodium 50 ml @ 100 mls/hr DAILY@09 IV 12/14/24 09:00 12/15/24 08:36 100 MLS/HR Amlodipine Besylate 5 mg DAILY PO 12/14/24 10:00 12/14/24 08:31 5 MG Hydralazine HCl 10 mg Q6HP PRN IV 12/14/24 01:00 Atorvastatin Calcium 20 mg HS PO 12/14/24 22:00 12/14/24 22:35 20 MG Famotidine 20 mg DAILY IV 12/14/24 10:00 12/14/24 08:31 20 MG Metoprolol Tartrate 50 mg BID PO 12/14/24 10:00 12/14/24 22:35 50 MG Diagnostic Test (Pha) 1 strip ACHS 12/14/24 07:00 12/15/24 06:06 1 STRIP Insulin Human Regular ACHS SC 12/14/24 07:00 Dextrose 50 ml UD PRN IV 12/14/24 01:00 Sodium Chloride 1,000 ml @ 60 mls/hr [id number] IV 12/14/24 01:00 12/15/24 08:37 60 MLS/HR Acetaminophen/ Hydrocodone Bitart 1 tab Q4HP PRN PO 12/14/24 01:00 12/14/24 04:30 1 TAB Ondansetron HCl 4 mg Q4HP PRN IV 12/14/24 01:00 Docusate Sodium 100 mg BIDPRN PRN PO 12/14/24 01:00 Acetaminophen 650 mg Q6HP PRN PO 12/14/24 01:00 Nitroglycerin 0.4 mg Q5MINP PRN SL 12/14/24 01:45 Morphine Sulfate 2 mg Q30M PRN IV 12/14/24 01:45 Metronidazole 100 ml @ 100 mls/hr Q8HR IV 12/14/24 06:00 12/15/24 06:05 100 MLS/HR Acetaminophen/ Codeine Phosphate 1 tab Q6HR PO 12/14/24 18:00 12/14/24 18:47 1 TAB Lorazepam 1 mg TID PO 12/14/24 14:00 12/15/24 06:05 1 MG Laboratory Results Laboratory Tests 12/15/24 05:25 Chemistry Test 12/15/24 05:25 Albumin 4.0 g/dL (3.2-4.8) Calcium Level 9.6 mg/dL (8.7-10.4) Total Protein 6.2 g/dL (5.7-8.2) LFT Test 12/15/24 05:25 Alanine Aminotransferase (ALT) 25 U/L (7-40) Alkaline Phosphatase 68 U/L (46-116) Aspartate Amino Transferase (AST) 27 U/L (13-40) Total Bilirubin 0.4 mg/dL (0.2-1.0) Assessment/Plan Assessment/Plan Constipation: Consult for GI Dr. Zafar appreciated, patient has had good bowel movement after stool softener Colitis Electrolyte imbalance Acute abdominal pain Diabetes Hypertension resume all for blood pressure medication Fibromyalgia Lupus: Resume CellCept Glaucoma resume timolol eyedrops Situation Anxiety: Ativan, psych consult by Dr. Leger appreciated Per patient she was on hospice for CHF and she does not want to be on hospice anymore Lives alone Time spent 65 minutes Patient is full code Advanced care planning time 20 mts Patient was with [facility] Plan discussed with: Patient My Orders Orders - HAILEE URBANO MD Procedure Category Date Status Time * Gi [facility] Advisor CONS 12/14/24 Transmitted 13:14 Acetaminophen/Codeine PHA 12/14/24 In Process Tablet (Tylenol W/ 18:00 Lorazepam Tablet PHA 12/14/24 In Process (Ativan Tablet) 14:00 *Tele Psych Consult CONS 12/14/24 Transmitted 16:31 Hydralazine Hcl PHA 12/15/24 Logged Tablet (Apresoline 10:00 Lisinopril Tablet PHA 12/15/24 Logged (Zestril Tablet) 10:00 Bupropion Tablet PHA 12/15/24 Logged (Wellbutrin Tablet) 19:00 Trazodone Hcl PHA 12/15/24 Logged (Desyrel) 22:00 Mycophenolate Mofetil PHA 12/15/24 Logged (Cellcept) 10:00 Hydroxychloroquine PHA 12/15/24 Logged Tablet (Plaquenil Tab 10:00 Timolol 0.5% Opth PHA 12/15/24 Logged Soln (Timoptic 0.5%) 10:00 Date of Service: Dec 15, 2024 Billing Provider: HAILEE URBANO MD Common Visit Codes: [id number] INP/OBS CARE(HIGH) HAILEE URBANO MD Dec 15, 2024 09:54
[2024-12-15] MEDS: hydrOXYchloroQUINE SULFATE 200 MG TAB PO SCH (10:29)
[2024-12-15] MEDS: TIMOLOL MAL 0.5% OPTH(EYE) SOL 5ML EACHEYE SCH (10:29)
[2024-12-15] MEDS: hydrALAZINE HCL 25 MG TAB PO SCH (13:20)
[2024-12-15] MEDS: LISINOPRIL 20 MG TAB PO SCH (13:21)
[2024-12-15] MEDS: MYCOPHENOLATE 500 MG TAB PO ONE (14:37)
[2024-12-15 16:19] LABS: Urine Bacteria None Seen /hpf (None Seen)
[2024-12-15 16:31] LABS: Urine Blood Negative /uL (Negative); Urine Clarity Clear (Clear); Urine Color Light-Yellow (Yellow); Urine Protein, UAD Negative (Negative); Urine Specific Gravity 1.015 (1.001-1.035); Urine Squamous Epithelial Cell FEW /hpf (<5); Urine Urobilinogen Normal (Negative); Urine WBC 2 /HPF (0-5); Urine pH 6.5 (5.0-9.0)
[2024-12-15] MEDS: buPROPion HCL 100 MG TAB PO SCH (20:00)
[2024-12-15] MEDS: ACETAMINOPHEN 325 MG TAB PO PRN (20:01)
--- NOTE | 2024-12-15 21:05 | DVHPN2 ---
Progress Note - Dictate Date Seen: Dec 15, 2024 Medical Necessity Reason Pt with a Central, PICC or Fol: No Subjective No new complaints Patient is feeling better Patient has had multiple bowel movements She had a recent colonoscopy at the gastro group vital signs Vital Sign Date Time Temp Pulse Resp B/P (MAP) Pulse Ox O2 Delivery O2 Flow Rate FiO2 12/15/24 16:30 97.8 79 16 102/68 (79) 96 97.8 12/15/24 08:00 Room Air* 0 21 Total Intake and Output 12/14/24 12/14/24 12/15/24 15:00 23:00 07:00 Intake Total 250 ml 600 ml 650 ml Output Total 400 ml Balance 250 ml 600 ml 250 ml medications Current Medications Medications Dose Ordered Sig/Karolyn Route Start Time Stop Time Status Last Admin Dose Admin Ceftriaxone Sodium 50 ml @ 100 mls/hr DAILY@09 IV 12/14/24 09:00 12/15/24 08:36 Amlodipine Besylate 5 mg DAILY PO 12/14/24 10:00 12/15/24 10:33 Hydralazine HCl 10 mg Q6HP PRN IV 12/14/24 01:00 Atorvastatin Calcium 20 mg HS PO 12/14/24 22:00 12/14/24 22:35 Famotidine 20 mg DAILY IV 12/14/24 10:00 12/15/24 10:29 Metoprolol Tartrate 50 mg BID PO 12/14/24 10:00 12/15/24 10:34 Diagnostic Test (Pha) 1 strip ACHS 12/14/24 07:00 12/15/24 17:00 Insulin Human Regular ACHS SC 12/14/24 07:00 Dextrose 50 ml UD PRN IV 12/14/24 01:00 Sodium Chloride 1,000 ml @ 60 mls/hr [id number] IV 12/14/24 01:00 12/15/24 08:37 Acetaminophen/ Hydrocodone Bitart 1 tab Q4HP PRN PO 12/14/24 01:00 12/14/24 04:30 Ondansetron HCl 4 mg Q4HP PRN IV 12/14/24 01:00 Docusate Sodium 100 mg BIDPRN PRN PO 12/14/24 01:00 Acetaminophen 650 mg Q6HP PRN PO 12/14/24 01:00 12/15/24 20:01 Nitroglycerin 0.4 mg Q5MINP PRN SL 12/14/24 01:45 Morphine Sulfate 2 mg Q30M PRN IV 12/14/24 01:45 Metronidazole 100 ml @ 100 mls/hr Q8HR IV 12/14/24 06:00 12/15/24 14:40 Acetaminophen/ Codeine Phosphate 1 tab Q6HR PO 12/14/24 18:00 12/15/24 13:19 Lorazepam 1 mg TID PO 12/14/24 14:00 12/15/24 14:36 Hydralazine HCl 50 mg Q12HR PO 12/15/24 10:00 12/15/24 13:20 Lisinopril 40 mg DAILY PO 12/15/24 10:00 12/15/24 13:21 Bupropion HCl 100 mg BID@07,19 PO 12/15/24 19:00 12/15/24 20:00 Trazodone HCl 150 mg HS PO 12/15/24 22:00 Mycophenolate Mofetil 500 mg BID PO 12/15/24 22:00 UNV Hydroxychloroquine Sulfate 200 mg DAILY PO 12/15/24 10:00 12/15/24 10:29 Timolol Maleate 1 drop BID EACHEYE 12/15/24 10:00 12/15/24 10:29 objective General: Alert and oriented x4 no distress HEENT: Normocephalic atraumatic EOMI, PERRLA, O/P clear Heart: Regular rate and rhythm Abdomen: Soft, mildly tender and mildly distended, no masses, normoactive bowel sounds Extremity: No clubbing cyanosis or edema laboratory and microbiology Laboratory Tests 12/15/24 05:25 Test 12/15/24 05:25 Range/Units Serum Glucose 103 74-106 mg/dL CT SCAN ABD PELVIS IMPRESSION: 1. Moderate fecal retention in the ascending and transverse colon. Hard formed stool in the distal descending colon and proximal sigmoid colon. No rectal fecal impaction. Distal sigmoid colon is collapsed , thick-walled and with adjacent fat stranding. Findings may reflect an infiltrative mural lesion or developing colitis or diverticulitis. Some of the diverticula are mildly thick- walled. Recommend clinical and biochemical correlation follow-up by CT scan with IV contrast or colonoscopy to ensure regression and benignity. No evidence of perforation at this time. Problems(with codes): (1) Acute metabolic encephalopathy (2) Vertigo (3) Hypoglycemia (4) Constipation, unspecified (5) Electrolyte imbalance (6) Acute abdominal pain (7) Sigmoid diverticulitis Prognosis Plan Possibly narcotic induced constipation from which she may benefit by taking Movantik as an outpatient Continue Colace 100 mg p.o. twice a day MiraLax 17 g p.o. daily Patient is on IV antibiotics to cover possible mild sigmoid diverticulitis Check UA Increase fluid and fiber intake Discharge planning as per hospitalist Patient will follow up with a gastro group as an outpatient, she had a recent colonoscopy with a, review results when available Plan discussed with: Patient, Other (Nurse Nelly) TINO HIGGINS MD Dec 15, 2024 21:05
[2024-12-15] MEDS: traZODone HCL 50 MG TAB PO SCH (22:55)
[2024-12-16 01:00] VITALS: BP 120/62; PULSE 62; RESP 18; TEMP 98.1; O2SAT 95
[2024-12-16 05:00] VITALS: BP 132/67; PULSE 71; RESP 18; TEMP 98.1; O2SAT 94
[2024-12-16 08:30] VITALS: BP 147/89; PULSE 74; RESP 16; TEMP 97.8; O2SAT 96
[2024-12-16] MEDS: MYCOPHENOLATE 500 MG TAB PO SCH (09:23)
--- NOTE | 2024-12-16 09:42 | DVHPN2 ---
Reviewed: Care Plan, H&P, Labs, Medications, Previous Orders, Radiology Changes from previous H/P or p: No Changes Eyes: No Pain, No Vision change, No Conjunctivae inflammation, No Eyelid inflammation, No Other, No Redness ENT: No Ear pain, No Ear discharge, No Nose pain, No Nose discharge, No Nose congestion, No Mouth pain, No Mouth swelling, No Throat pain, No Throat swelling, No Other Cardiovascular: No Chest Pain, No Palpitations, No Orthopnea, No Paroxysmal Noc. Dyspnea, No Edema, No Lt Headedness, No Other Respiratory: No Cough, No Dry, No Shortness of breath, No SOB with excertion, No Wheezing, No Hemoptysis, No Pleuritic Pain, No Sputum, No Other Gastrointestinal: No Nausea, No Vomiting; Abdominal Pain; No Diarrhea; C onstipation; No Melena, No Hematochezia, No Other Genitourinary: No Dysuria, No Frequency, No Incontinence, No Hematuria, No Retention, No Other Musculoskeletal: No other, No neck pain, No shoulder pain, No arm pain, No back pain, No hand pain, No leg pain, No foot pain Skin: No Rash, No Lesions, No Jaundice, No Bruising, No Other Objective Vitals Vital Signs Date Time Temp Pulse Resp B/P (MAP) Pulse Ox O2 Delivery O2 Flow Rate FiO2 12/16/24 09:25 147/81 12/16/24 09:25 74 12/16/24 08:30 97.8 16 96 97.8 12/16/24 08:19 Room Air* 0 21 Intake/Output Intake and Output 12/16/24 07:00 Intake Total 1800 ml Output Total 700 ml Balance 1100 ml Intake Oral 150 ml IV Total 1650 ml Output Urine Total 700 ml # Voids 6 # Bowel Movements 6 Medications Current Medications Medications Dose Ordered Sig/Karolyn Route Start Time Stop Time Status Last Admin Dose Admin Ceftriaxone Sodium 50 ml @ 100 mls/hr DAILY@09 IV 12/14/24 09:00 12/16/24 09:26 100 MLS/HR Amlodipine Besylate 5 mg DAILY PO 12/14/24 10:00 12/16/24 09:25 5 MG Hydralazine HCl 10 mg Q6HP PRN IV 12/14/24 01:00 Atorvastatin Calcium 20 mg HS PO 12/14/24 22:00 12/15/24 22:20 20 MG Famotidine 20 mg DAILY IV 12/14/24 10:00 12/16/24 09:26 20 MG Metoprolol Tartrate 50 mg BID PO 12/14/24 10:00 12/16/24 09:25 50 MG Diagnostic Test (Pha) 1 strip ACHS 12/14/24 07:00 12/16/24 06:49 1 STRIP Insulin Human Regular ACHS SC 12/14/24 07:00 Dextrose 50 ml UD PRN IV 12/14/24 01:00 Sodium Chloride 1,000 ml @ 60 mls/hr [id number] IV 12/14/24 01:00 12/16/24 02:28 60 MLS/HR Acetaminophen/ Hydrocodone Bitart 1 tab Q4HP PRN PO 12/14/24 01:00 12/14/24 04:30 1 TAB Ondansetron HCl 4 mg Q4HP PRN IV 12/14/24 01:00 Docusate Sodium 100 mg BIDPRN PRN PO 12/14/24 01:00 Acetaminophen 650 mg Q6HP PRN PO 12/14/24 01:00 12/15/24 20:01 650 MG Nitroglycerin 0.4 mg Q5MINP PRN SL 12/14/24 01:45 Morphine Sulfate 2 mg Q30M PRN IV 12/14/24 01:45 Metronidazole 100 ml @ 100 mls/hr Q8HR IV 12/14/24 06:00 12/16/24 05:48 100 MLS/HR Acetaminophen/ Codeine Phosphate 1 tab Q6HR PO 12/14/24 18:00 12/15/24 13:19 1 TAB Lorazepam 1 mg TID PO 12/14/24 14:00 12/16/24 05:48 1 MG Hydralazine HCl 50 mg Q12HR PO 12/15/24 10:00 12/16/24 09:25 50 MG Lisinopril 40 mg DAILY PO 12/15/24 10:00 12/16/24 09:24 40 MG Bupropion HCl 100 mg BID@07,19 PO 12/15/24 19:00 12/16/24 06:30 100 MG Trazodone HCl 150 mg HS PO 12/15/24 22:00 12/15/24 22:55 150 MG Mycophenolate Mofetil 500 mg DAILY PO 12/15/24 10:00 Hydroxychloroquine Sulfate 200 mg DAILY PO 12/15/24 10:00 12/16/24 09:25 200 MG Timolol Maleate 1 drop BID EACHEYE 12/15/24 10:00 12/16/24 09:26 1 DROP Laboratory Results Laboratory Tests 12/15/24 05:25 Urinalysis Test 12/15/24 05:20 Urine Color Light-yellow (Yellow) Urine Clarity Clear (Clear) Urine pH 6.5 (5.0-9.0) Urine Specific [place] 1.015 (1.001-1.035) Urine Protein Negative (Negative) Urine Ketones Negative (Negative) Urine Blood Negative /uL (Negative) Urine Nitrite Negative (Negative) Urine Bilirubin Negative (Negative) Urine Urobilinogen Normal mg/dL (Negative) Urine Leukocyte Esterase Negative /uL (Negative) Urine RBC <1 /hpf (0 - 4) Urine Microscopic WBC 2 /HPF (0-5) Urine Squamous Epithelial Cells Few /hpf (<5) Urine Bacteria None seen /hpf (None Seen) Urine Glucose Normal mg/dL (Normal) Labs and/or images reviewed: Labs reviewed by me, Image(s) reviewed by me Assessment/Plan Assessment/Plan Constipation: Consult for GI Dr. Zafar appreciated, patient has had good bowel movement after stool softener Colitis Electrolyte imbalance Acute abdominal pain Diabetes Hypertension resume all for blood pressure medication Fibromyalgia Lupus: Resume CellCept Glaucoma resume timolol eyedrops Situation Anxiety: Ativan, psych consult by Dr. Leger appreciated Per patient she was on [facility] for CHF Lives alone Time spent 65 minutes Patient is full code Advanced care planning time 20 mts Patient was with [facility] Plan discussed with: Patient My Orders Orders - HAILEE URBANO MD Procedure Category Date Status Time Hydralazine Hcl PHA 12/15/24 In Process Tablet (Apresoline 10:00 Lisinopril Tablet PHA 12/15/24 In Process (Zestril Tablet) 10:00 Bupropion Tablet PHA 12/15/24 In Process (Wellbutrin Tablet) 19:00 Trazodone Hcl PHA 12/15/24 In Process (Desyrel) 22:00 Mycophenolate Mofetil PHA 12/15/24 In Process (Cellcept) 10:00 Hydroxychloroquine PHA 12/15/24 In Process Tablet (Plaquenil Tab 10:00 Timolol 0.5% Opth PHA 12/15/24 In Process Soln (Timoptic 0.5%) 10:00 Date of Service: Dec 16, 2024 Billing Provider: HAILEE URBANO MD Common Visit Codes: 02560-UAXIQSORYE INP/OBS CARE(HIGH) HAILEE URBANO MD Dec 16, 2024 09:42
--- NOTE | 2024-12-16 09:47 | DVHDS2 ---
Discharge Summary Date of Admission Dec 14, 2024 at 01:35 Date of Discharge: Dec 16, 2024 Admitting Diagnosis Constipation Wounds: None Labs/Diagnostic Data: Laboratory Results Test 12/16/24 05:52 12/15/24 05:25 12/15/24 05:20 12/14/24 06:02 POC Glucose 111 mg/dl (70-106) White Blood Count 5.8 10^3/uL (4.4-10.8) Red Blood Count 3.71 10^6/uL (4.0-5.20) Hemoglobin 11.1 g/dL (12.2-16.2) Hematocrit 32.5 % (36.0-46.0) Mean Corpuscular Volume 87.5 fL (80.0-100.0) Mean Corpuscular Hemoglobin 29.8 pg (28.0-32.0) Mean Corpuscular Hemoglobin Concent 34.1 g/dL (32.0-36.0) Red Cell Distribution Width 13.7 % (11.8-14.3) Platelet Count 213 10^3/uL (140-450) Mean Platelet Volume 9.9 fL (6.9-10.8) Neutrophils (%) (Auto) 42.4 % (37.0-80.0) Lymphocytes (%) (Auto) 47.0 % (10.0-50.0) Monocytes (%) (Auto) 9.0 % (0.0-12.0) Eosinophils (%) (Auto) 1.0 % (0.0-7.0) Basophils (%) (Auto) 0.6 % (0.0-2.0) Neutrophils # (Auto) 2.5 10 ^3/uL (1.6-8.6) Lymphocytes # (Auto) 2.7 10 ^3/uL (0.4-5.4) Monocytes # (Auto) 0.5 10 ^3/uL (0-1.3) Eosinophils # (Auto) 0.1 10 ^3/uL (0-0.8) Basophils # (Auto) 0 10 ^3/uL (0-0.2) Nucleated Red Blood Cells 0.2 % Sodium Level 141 mmol/L (136-145) Potassium Level 3.6 mmol/L (3.5-5.1) Chloride Level 105 mmol/L (98-107) Carbon Dioxide Level 26 mmol/L (20-31) Anion Gap 10 (5-15) Blood Urea Nitrogen 15 mg/dL (9-23) Creatinine 1.03 mg/dL (0.550-1.02) Glomerular Filtration Rate Calc 59 mL/min (>90) BUN/Creatinine Ratio 14.6 (10.0-20.0) Serum Glucose 103 mg/dL (74-106) Calcium Level 9.6 mg/dL (8.7-10.4) Total Bilirubin 0.4 mg/dL (0.2-1.0) Aspartate Amino Transferase (AST) 27 U/L (13-40) Alanine Aminotransferase (ALT) 25 U/L (7-40) Alkaline Phosphatase 68 U/L (46-116) Total Protein 6.2 g/dL (5.7-8.2) Albumin 4.0 g/dL (3.2-4.8) Urine Color Light-yellow (Yellow) Urine Clarity Clear (Clear) Urine pH 6.5 (5.0-9.0) Urine Specific [place] 1.015 (1.001-1.035) Urine Protein Negative (Negative) Urine Ketones Negative (Negative) Urine Blood Negative /uL (Negative) Urine Nitrite Negative (Negative) Urine Bilirubin Negative (Negative) Urine Urobilinogen Normal mg/dL (Negative) Urine Leukocyte Esterase Negative /uL (Negative) Urine RBC <1 /hpf (0 - 4) Urine Microscopic WBC 2 /HPF (0-5) Urine Squamous Epithelial Cells Few /hpf (<5) Urine Bacteria None seen /hpf (None Seen) Urine Glucose Normal mg/dL (Normal) Troponin I High Sensitivity 3 ng/L (</=34) Test 12/13/24 17:30 B-Type Natriuretic Peptide 141.68 pg/mL (0-100) Lipase 28 U/L (12-53) Other Laboratory Tests 12/15/24 05:25 Brief Hx & Hospital Course: 69-year-old female with a history of lupus fibromyalgia hypertension diabetes chronic anxiety glaucoma on hospice with [facility] came in for constipation seen by GI Dr. Castellanos and Dr. Ramirez patient was treated with a stool softener and MiraLax patient has a bowel movement and feels better and wants to be discharged back on hospice. Consults/Reason for consult GI Dr. Kirk Ramirez Tele psych Operations or Procedures CT abdomen pelvis without contrast Condition at Discharge: Fair Final Diagnosis/Problems List Constipation: Consult for GI Dr. Zafar appreciated, patient has had good bowel movement after stool softener Colitis Electrolyte imbalance Acute abdominal pain Diabetes Hypertension resume all for blood pressure medication Fibromyalgia Lupus: Resume CellCept Glaucoma resume timolol eyedrops Situation Anxiety: Ativan, psych consult by Dr. Leger appreciated Per patient she was on [facility] for CHF Discharge Disposition: Hospice - Home Discharge Instruct/Medications Diet: Cardiac 2g Na,low cholest Activity: Light activity Follow Up/Referral: Follow up with the hospice Dr March all previous home meds Medications: none 35 (Time taken for discharge summary 35 minutes) Discharge Statement: "Patient was advised to return to the ER or call 911 if any headaches, dizziness, shortness of breath, chest pain, abdominal pain, bleeding, fevers, or worsening of medical condition. Patient was counseled about treatment plan, medications, possible side effects, patientverbalized understanding. All questions were answered to the best of my ability. This discharge took greater then 30 minutes in planning, reviewing documentation, counseling the patient, and discussing with other team members." ASSESSMENT ASSESSMENT Hospital Course Improved Assessment Constipation: Consult for GI Dr. Zafar appreciated, patient has had good bowel movement after stool softener Colitis Electrolyte imbalance Acute abdominal pain Diabetes Hypertension resume all for blood pressure medication Fibromyalgia Lupus: Resume CellCept Glaucoma resume timolol eyedrops Situation Anxiety: Ativan, psych consult by Dr. Leger appreciated Per patient she was on [facility] for CHF Date of Service: Dec 16, 2024 Billing Provider: HAILEE URBANO MD Common Visit Codes: 62831-FUV/OBS DISCH DAY >30min HAILEE URBANO MD Dec 16, 2024 09:47
--- NOTE | 2024-12-16 11:40 | DVHPN2 ---
Progress Note Date Seen: Dec 16, 2024 Resident Creating Document: KOTA ENGLISH RESIDENT Medical Necessity Reason Pt with a Central, PICC or Fol: No Subjective Review of Systems No new complaints Patient is feeling better Last bowel movement this morning, soft in consistency. No blood noted in stool Reports some nausea, but no vomiting She had a recent colonoscopy at the gastro group Objective vital signs Vital Sign Date Time Temp Pulse Resp B/P (MAP) Pulse Ox O2 Delivery O2 Flow Rate FiO2 12/16/24 09:25 147/81 12/16/24 09:25 74 12/16/24 08:30 97.8 16 96 97.8 12/16/24 08:19 Room Air* 0 21 Total Intake and Output 12/15/24 12/15/24 12/16/24 15:00 23:00 07:00 Intake Total 250 ml 640 ml 910 ml Output Total 700 ml Balance 250 ml 640 ml 210 ml medications Current Medications Medications Dose Ordered Sig/Karolyn Route Start Time Stop Time Status Last Admin Dose Admin Ceftriaxone Sodium 50 ml @ 100 mls/hr DAILY@09 IV 12/14/24 09:00 12/16/24 09:26 100 MLS/HR Amlodipine Besylate 5 mg DAILY PO 12/14/24 10:00 12/16/24 09:25 5 MG Hydralazine HCl 10 mg Q6HP PRN IV 12/14/24 01:00 Atorvastatin Calcium 20 mg HS PO 12/14/24 22:00 12/15/24 22:20 20 MG Famotidine 20 mg DAILY IV 12/14/24 10:00 12/16/24 09:26 20 MG Metoprolol Tartrate 50 mg BID PO 12/14/24 10:00 12/16/24 09:25 50 MG Diagnostic Test (Pha) 1 strip ACHS 12/14/24 07:00 12/16/24 06:49 1 STRIP Insulin Human Regular ACHS SC 12/14/24 07:00 Dextrose 50 ml UD PRN IV 12/14/24 01:00 Sodium Chloride 1,000 ml @ 60 mls/hr [id number] IV 12/14/24 01:00 12/16/24 02:28 60 MLS/HR Acetaminophen/ Hydrocodone Bitart 1 tab Q4HP PRN PO 12/14/24 01:00 12/16/24 10:23 1 TAB Ondansetron HCl 4 mg Q4HP PRN IV 12/14/24 01:00 Docusate Sodium 100 mg BIDPRN PRN PO 12/14/24 01:00 Acetaminophen 650 mg Q6HP PRN PO 12/14/24 01:00 12/15/24 20:01 650 MG Nitroglycerin 0.4 mg Q5MINP PRN SL 12/14/24 01:45 Morphine Sulfate 2 mg Q30M PRN IV 12/14/24 01:45 Metronidazole 100 ml @ 100 mls/hr Q8HR IV 12/14/24 06:00 12/16/24 05:48 100 MLS/HR Acetaminophen/ Codeine Phosphate 1 tab Q6HR PO 12/14/24 18:00 12/15/24 13:19 1 TAB Lorazepam 1 mg TID PO 12/14/24 14:00 12/16/24 05:48 1 MG Hydralazine HCl 50 mg Q12HR PO 12/15/24 10:00 12/16/24 09:25 50 MG Lisinopril 40 mg DAILY PO 12/15/24 10:00 12/16/24 09:24 40 MG Bupropion HCl 100 mg BID@07,19 PO 12/15/24 19:00 12/16/24 06:30 100 MG Trazodone HCl 150 mg HS PO 12/15/24 22:00 12/15/24 22:55 150 MG Mycophenolate Mofetil 500 mg DAILY PO 12/15/24 10:00 Hydroxychloroquine Sulfate 200 mg DAILY PO 12/15/24 10:00 12/16/24 09:25 200 MG Timolol Maleate 1 drop BID EACHEYE 12/15/24 10:00 12/16/24 09:26 1 DROP Examination General Appearance: Cooperative. Well developed. Well nourished. NAD Head Exam: Normal inspection Neck Exam: Normal inspection. Non-tender. Normal alignment Pulmonary/Respiratory: Chest non-tender. Clear bilateral breath sounds Cardiovascular/Chest: Regular rate and rhythm. No murmurs. No JVD. Abdominal Exam: Normal bowel sounds. Soft. Diffuse generalized tenderness did not outpatient, notes it as 8/10. No hepatospenomegaly. No masses Ankle Exam: Negative ankle edema Lower extremities: Negative lower extremity edema Neuro/Mental Status: A&O x4. Coherent Appearance: In no acute distress Skin Exam: Normal inspection. Normal color. Warm. Dry laboratory and microbiology Laboratory Tests 12/15/24 05:25 Test 12/15/24 05:25 Range/Units Serum Glucose 103 74-106 mg/dL Labs and/or images reviewed: Labs reviewed by me, Image(s) reviewed by me Problem List/Assessment/Plan Problem List/Assessment/Plan Constipation, unspecified Acute intractable abdominal pain Sigmoid diverticulitis Acute metabolic encephalopathy Vertigo Hypoglycemia Electrolyte imbalance Chronic kidney disease Plan Possibly narcotic induced constipation from which she may benefit by taking Movantik as an outpatient Continue Colace 100 mg p.o. twice a day continue MiraLax 17 g p.o. daily continue antibiotics to cover possible mild sigmoid diverticulitis UA clean Increase fluid and fiber intake Discharge planning as per hospitalist Patient will follow up with a gastro group as an outpatient, she had a recent colonoscopy with a, review results when available Plan discussed with: Patient, Spouse, Daughter KOTA ENGLISH RESIDENT Dec 16, 2024 11:40
== END 2024-12-16 11:49 | disposition hospice, home (50) | DRG 391 ==
LOC: EDBD 16:56 → ER 16:59 → OVERFLOW 12-14 01:35 → CENTRAL 12-14 03:35
PROVIDERS: ADMIT Nurse Practitioner Family; ATTEND Nurse Practitioner Family
DX: A09 Infectious gastroenteritis and colitis, unspecified (principal); G93.41 Metabolic encephalopathy; N18.6 End stage renal disease; I13.2 Hypertensive heart and chronic kidney disease with heart failure and with stage 5 chronic kidney disease, or end stage renal disease; K57.32 Diverticulitis of large intestine without perforation or abscess without bleeding; K56.41 Fecal impaction; Z51.5 Encounter for palliative care; E11.22 Type 2 diabetes mellitus with diabetic chronic kidney disease; E11.649 Type 2 diabetes mellitus with hypoglycemia without coma; I50.9 Heart failure, unspecified; F43.22 Adjustment disorder with anxiety; E78.5 Hyperlipidemia, unspecified; H40.89 Other specified glaucoma; M79.7 Fibromyalgia; Z79.84 Long term (current) use of oral hypoglycemic drugs; Z79.899 Other long term (current) drug therapy; Z79.624 Long term (current) use of inhibitors of nucleotide synthesis; Z82.49 Family history of ischemic heart disease and other diseases of the circulatory system; Z80.7 Family history of other malignant neoplasms of lymphoid, hematopoietic and related tissues; Z90.710 Acquired absence of both cervix and uterus; Z90.49 Acquired absence of other specified parts of digestive tract
CPT/HCPCS: 36415; 74176; 80053; 81001; 82962; 83690; 83880; 84484; 85025; 93005; 96361; 96365; 96375; 96376; G0378; J1815; J2405; J2543; J3490; J7517